=== PATIENT | male | born 1935 | race Caucasian/White ===

== ENCOUNTER 2019-01-11 11:45 | Emergency (ER) | payer OTHER, SELFPAY ==
[2019-01-11 11:52] VITALS: BP 141/89; PULSE 65; RESP 21; TEMP 36.1; O2SAT 97
--- NOTE | 2019-01-11 11:59 | DI.RAD.S_ITS ---
PROCEDURE: XR CHEST 2V INDICATIONS: cough, dyspnea, L. lung crackles TECHNIQUE: 2 views of the chest were acquired. COMPARISON: [facility], CR, XR CHEST 2 VIEWS, 12/11/2017, 8:56. FINDINGS: Surgical changes and devices: A right-sided cardiac pacer/defibrillator is new since the prior study. Lungs and pleura: Developing right infrahilar and left basilar airspace disease appears to be present. There is no large effusion or definite pneumothorax. Mediastinum: Mediastinal contours are normal. Heart size is normal. There is aortic atherosclerosis. Bones and chest wall: No suspicious bony abnormalities. Soft tissues appear unremarkable. IMPRESSION: Bibasilar pneumonia versus atelectasis. Dictated by: Dylan Jennings M.D. on 01/11/2019 at 12:13 Approved by: Dylan Jennings M.D. on 01/11/2019 at 12:15
--- NOTE | 2019-01-11 12:13 | ED.URI ---
HPI - URI/Sore Throat <Thelma Marsh PA-C - Last Filed: 01/11/19 20:16> General Chief Complaint: Upper Respiratory Symptoms Stated Complaint: COUGHING,SPITTING Time Seen by Provider: 01/11/19 11:58 Source: patient, family and old records reviewed Mode of arrival: ambulatory Limitations: no limitations History of Present Illness HPI Narrative: This 83-year-old gentleman is sent by PCP with complaint of approximately 10-14 day history of productive cough with yellow sputum. He states he has had nasal drainage, head and nasal congestion, and postnasal drip with this as well. He denies any fever. He denies any specific exposures. He states that he has chronic dyspnea, has been more short of breath than usual, and also difficulty sleeping flat in using his CPAP due to the head and nasal congestion (he states inability to lie flat is not due to his cough or breathing). He states that his nebulizer treatments at home do help, but finds that he has to lever to breathe. He states that he will occasionally feel some gas pain along his left ribs that resolves quickly, otherwise no chest pain. He denies any new pain or swelling in his extremities. He has not noted new wheeze. He does not have any history of blood clots. He is a former smoker and has COPD. He states that symptoms have not changed at all today for better or worse, BP to come to ED secondary to elevated D-dimer. Related Data Home Medications Medication Instructions Recorded Confirmed calcium carbonate 1 tab PO BID #0 12/16/10 01/11/19 omega 2-cxp-ehl-fish oil [Fish Oil] 3,000 mg PO QPM #0 12/16/10 01/11/19 ascorbic acid (vitamin C) 500 mg PO DAILY #0 10/10/17 01/11/19 multivitamin [Multiple Vitamins] 1 tab PO DAILY #0 10/10/17 01/11/19 Glucosamine Chondroitin 1 cap PO DAILY 01/11/19 01/11/19 acetaminophen 500 - 1,000 mg PO PRN PRN 01/11/19 01/11/19 albuterol sulfate 3 ml INH BID PRN 01/11/19 01/11/19 albuterol sulfate [Proventil HFA] 1 - 2 puff INH Q4HP 01/11/19 01/11/19 allopurinol 300 mg PO QAM 01/11/19 01/11/19 aspirin 81 mg PO QAM 01/11/19 01/11/19 cholecalciferol (vitamin D3) 1,000 unit PO BID 01/11/19 01/11/19 [Vitamin D3] colchicine 0.6 mg PO BIDP PRN 01/11/19 01/11/19 cyanocobalamin (vitamin B-12) 1,000 mcg PO DAILY 01/11/19 01/11/19 [Vitamin B-12] lisinopril 5 mg PO QAM 01/11/19 01/11/19 loratadine 10 mg PO DAILY 01/11/19 01/11/19 magnesium oxide 400 mg PO QAM 01/11/19 01/11/19 metoprolol tartrate 12.5 mg PO BID 01/11/19 01/11/19 rosuvastatin 10 mg PO QPM 01/11/19 01/11/19 spironolactone 25 mg PO QAM 01/11/19 01/11/19 tamsulosin 0.8 mg PO QPM 01/11/19 01/11/19 Previous Rx's Medication Instructions Recorded amoxicillin-pot clavulanate 1 tab PO Q12H #20 tab 01/11/19 [Augmentin] Allergies Allergy/AdvReac Type Severity Reaction Status Date / Time atorvastatin [ATORVASTATIN] Allergy Intermediate MUSCLE PAIN Unverified 10/26/17 12:53 simvastatin [SIMVASTATIN] Allergy Unknown Unverified 10/26/17 12:53 Review of Systems <Thelma Marsh PA-C - Last Filed: 01/11/19 20:16> Review of Systems ROS Unobtainable: All systems reviewed & are unremarkable except as noted in HPI and below PFSH <Thelma Marsh PA-C - Last Filed: 01/11/19 20:16> Medical History (Updated 01/11/19 @ 14:40 by Thelma Marsh PA-C) HTN (hypertension) (Acute) Atrial fibrillation (Chronic) Bradycardia (Chronic) COPD (chronic obstructive pulmonary disease) (Chronic) Gout (Chronic) History of GI bleed (Chronic) History of colon polyps (Chronic) Hyperlipidemia (Chronic) Pollen allergies (Chronic) Pacemaker (Resolved) Surgical History (Updated 01/11/19 @ 12:17 by Thelma Marsh PA-C) History of cataract removal with insertion of prosthetic lens (Resolved) Status post hernia repair (Resolved) Family History (Updated 10/06/16 @ 00:00 by Conversion Provider) Brother Age: 85 Prostate cancer Social History Smoking Status: Former smoker Family History (Updated 10/06/16 @ 00:00 by Conversion Provider) Brother Age: 85 Prostate cancer Social History Smoking Status: Former smoker Exam <Thelma Marsh PA-C - Last Filed: 01/11/19 20:16> Narrative Exam Narrative: GENERAL APPEARANCE: Patient sitting comfortably, in no distress. HEENT: PERRL, EOMI, TMs intact with normal light reflexes, normal oropharynx NECK/THYROID: Neck supple, no masses LUNGS: Clear to auscultation bilaterally aside from minimal faint left mid lung crackle HEART: Regular rate and rhythm without murmur, normal S1, S2, no S3 or S4. ABDOMEN: Soft, NT, ND, + BS x 4 quadrants EXTREMITIES: No cyanosis or edema. No calf tenderness NEUROLOGIC: Alert and oriented, normal speech, gait and coordination. Initial Vital Signs Initial Vital Signs: Vital Signs Temperature 97.0 F L 01/11/19 11:52 Pulse Rate 65 01/11/19 11:52 Respiratory Rate 21 01/11/19 11:52 Blood Pressure 141/89 H 01/11/19 11:52 Pulse Oximetry 97 01/11/19 11:52 <Erna Dumont DO - Last Filed: 01/12/19 07:47> Initial Vital Signs Initial Vital Signs: Vital Signs Temperature 97.0 F L 01/11/19 11:52 Pulse Rate 65 01/11/19 11:52 Respiratory Rate 21 01/11/19 11:52 Blood Pressure 141/89 H 01/11/19 11:52 Pulse Oximetry 97 01/11/19 11:52 Course <Thelma Marsh PA-C - Last Filed: 01/11/19 20:16> Additional Information: I spoke with patient PCP Dr. Sauceda and reviewed findings. No clinical evidence of DVT/PE today. Patient is not hypoxic or tachycardic. His nebulizer at home and here has help symptoms. He does look like he has some pneumonia on chest x-ray and has been symptomatic with upper respiratory symptoms and productive cough for [address] Grimm is agreeable with plan to start Augmentin and he will follow up with patient 1st of next week. Patient agrees to return if any acutely worsening symptoms in the interim Orders Ordered: Discontinued Medications Albuterol (Ventolin) 2.5 mg INH NOW PRN PRN Reason: Shortness Of Breath Or Wheezing Last Admin: 01/11/19 14:11 Dose: 2.5 mg Albuterol/Ipratropium (Duoneb) 3 ml INH NOW ONE Stop: 01/11/19 11:59 Last Admin: 01/11/19 12:35 Dose: 3 ml Vital Signs - 8 hr 01/11/19 12:35 01/11/19 13:19 01/11/19 14:12 Pulse Rate 60 60 98 H Respiratory Rate 16 20 14 Blood Pressure [Left Arm] 123/57 L Pulse Oximetry 97 99 98 01/11/19 14:33 Pulse Rate 60 Respiratory Rate 18 Blood Pressure [Left Arm] 118/55 L Pulse Oximetry 97 <Erna Dumont DO - Last Filed: 01/12/19 07:47> Orders Ordered: Discontinued Medications Albuterol (Ventolin) 2.5 mg INH NOW PRN PRN Reason: Shortness Of Breath Or Wheezing Last Admin: 01/11/19 14:11 Dose: 2.5 mg Albuterol/Ipratropium (Duoneb) 3 ml INH NOW ONE Stop: 01/11/19 11:59 Last Admin: 01/11/19 12:35 Dose: 3 ml Vital Signs - 8 hr 01/11/19 12:35 01/11/19 13:19 01/11/19 14:12 Pulse Rate 60 60 98 H Respiratory Rate 16 20 14 Blood Pressure [Left Arm] 123/57 L Pulse Oximetry 97 99 98 01/11/19 14:33 Pulse Rate 60 Respiratory Rate 18 Blood Pressure [Left Arm] 118/55 L Pulse Oximetry 97 MDM - URI/Sore Throat <Thelma Marsh PA-C - Last Filed: 01/11/19 20:16> Lab Data Attestation: I reviewed the patient's lab results. Result diagrams: 01/11/19 12:10 01/11/19 12:10 Lab Results 01/11/19 01/11/19 01/11/19 Range/Units 12:10 12:10 12:10 WBC 4.6 (4.5-11.0) X10^3/uL RBC 3.92 L (4.5-5.9) X10^6/uL Hgb 12.6 L (13.5-17.5) g/dL Hct 38.2 L (41-53) % MCV 97.4 (80-100) fL MCH 32.2 (26-34) PG MCHC 33.0 (30-36) % RDW 15.2 H (11.6-14.8) % Plt Count 149 L (150-400) X10^3/uL Neut % (Auto) Not Reportable Lymph % (Auto) Not Reportable [place] % (Auto) Not Reportable Eos % (Auto) Not Reportable Baso % (Auto) Not Reportable Lymph # (Auto) Not Reportable [place] # (Auto) Not Reportable Baso # (Auto) Not Reportable Total Counted 100 Seg Neutrophils % 68.0 (38-70) % Lymphocytes % (Manual) 11.0 L (25-45) % Atypical Lymphs % 2.0 H ( - 0) % Monocytes % (Manual) 19.0 H (2-11) % Neutrophils # (Manual) 3128 (6158-5635) /uL RBC Morphology See below Anisocytosis 1+ H Sodium (137-145) mmol/L Potassium (3.4-5.1) mmol/L Chloride (98-107) mmol/L Carbon Dioxide (22-32) mmol/L BUN (9-20) mg/dL Creatinine (0.66-1.25) mg/dL Estimated GFR (>60) mL/min BUN/Creatinine Ratio (6-22) Glucose (80-110) mg/dL Lactate 1.2 (0.7-2.1) mmol/L Calcium (8.4-10.2) mg/dL Magnesium 1.7 (1.6-2.3) mg/dL Total Bilirubin (0.2-1.3) mg/dL AST (17-59) IU/L ALT (21-72) IU/L Alkaline Phosphatase (38-126) U/L Total Creatine Kinase 167 (55-170) U/L CK-MB (CK-2) 1.75 (<2.37) ng/mL CK-MB (CK-2) Rel Index 1.0 L (1.5-5.0) % Troponin I < 0.012 (0.01-0.034) ng/mL B-Natriuretic Peptide 270 H (<100) Total Protein (6.3-8.2) g/dL Albumin (3.5-5.0) g/dL Globulin (1.7-4.1) g/dL Albumin/Globulin Ratio (1.0-2.8) 01/11/19 Range/Units 12:10 WBC (4.5-11.0) X10^3/uL RBC (4.5-5.9) X10^6/uL Hgb (13.5-17.5) g/dL Hct (41-53) % MCV (80-100) fL MCH (26-34) PG MCHC (30-36) % RDW (11.6-14.8) % Plt Count (150-400) X10^3/uL Neut % (Auto) Lymph % (Auto) [place] % (Auto) Eos % (Auto) Baso % (Auto) Lymph # (Auto) [place] # (Auto) Baso # (Auto) Total Counted Seg Neutrophils % (38-70) % Lymphocytes % (Manual) (25-45) % Atypical Lymphs % ( - 0) % Monocytes % (Manual) (2-11) % Neutrophils # (Manual) (6162-0778) /uL RBC Morphology Anisocytosis Sodium 143 (137-145) mmol/L Potassium 3.8 (3.4-5.1) mmol/L Chloride 111 H (98-107) mmol/L Carbon Dioxide 23 (22-32) mmol/L BUN 18 (9-20) mg/dL Creatinine 0.90 (0.66-1.25) mg/dL Estimated GFR > 60.0 (>60) mL/min BUN/Creatinine Ratio 20.0 (6-22) Glucose 93 (80-110) mg/dL Lactate (0.7-2.1) mmol/L Calcium 8.8 (8.4-10.2) mg/dL Magnesium (1.6-2.3) mg/dL Total Bilirubin 0.6 (0.2-1.3) mg/dL AST 24 (17-59) IU/L ALT 21 (21-72) IU/L Alkaline Phosphatase 64 (38-126) U/L Total Creatine Kinase (55-170) U/L CK-MB (CK-2) (<2.37) ng/mL CK-MB (CK-2) Rel Index (1.5-5.0) % Troponin I (0.01-0.034) ng/mL B-Natriuretic Peptide (<100) Total Protein 6.4 (6.3-8.2) g/dL Albumin 3.8 (3.5-5.0) g/dL Globulin 2.6 (1.7-4.1) g/dL Albumin/Globulin Ratio 1.5 (1.0-2.8) Imaging Data Chest x-ray: Radiologist's impression: [address] [address] XRay Report Signed Patient: Clinton Monte BMR#: [id number] : 8Acct:[id number] Age/Sex: 83 / MDate of Service: 01/11/19 Loc: ED Accession Number: [id number] Procedure: XR chest 2V Ordering Provider: Thelma Marsh P.A-C PROCEDURE: XR CHEST 2V INDICATIONS: cough, dyspnea, L. lung crackles TECHNIQUE: 2 views of the chest were acquired. COMPARISON: [facility], , XR CHEST 2 VIEWS, 12/11/2017, 8:56. FINDINGS: Surgical changes and devices: A right-sided cardiac pacer/defibrillator is new since the prior study. Lungs and pleura: Developing right infrahilar and left basilar airspace disease appears to be present. There is no large effusion or definite pneumothorax. Mediastinum: Mediastinal contours are normal. Heart size is normal. There is aortic atherosclerosis. Bones and chest wall: No suspicious bony abnormalities. Soft tissues appear unremarkable. IMPRESSION: Bibasilar pneumonia versus atelectasis. Dictated by: Dylan Jennings M.D. on 01/11/2019 at 12:13 Approved by: Dylan Jennings M.D. on 01/11/2019 at 12:15 ECG Data Attestation: I personally reviewed and interpreted this ECG as follows: (Sinus rhythm, ventricular pacing, left axis deviation, rate 60) <Erna Dumont, DO - Last Filed: 01/12/19 07:47> Lab Data Lab Results 01/11/19 01/11/19 01/11/19 Range/Units 12:10 12:10 12:10 WBC 4.6 (4.5-11.0) X10^3/uL RBC 3.92 L (4.5-5.9) X10^6/uL Hgb 12.6 L (13.5-17.5) g/dL Hct 38.2 L (41-53) % MCV 97.4 (80-100) fL MCH 32.2 (26-34) PG MCHC 33.0 (30-36) % RDW 15.2 H (11.6-14.8) % Plt Count 149 L (150-400) X10^3/uL Neut % (Auto) Not Reportable Lymph % (Auto) Not Reportable [place] % (Auto) Not Reportable Eos % (Auto) Not Reportable Baso % (Auto) Not Reportable Lymph # (Auto) Not Reportable [place] # (Auto) Not Reportable Baso # (Auto) Not Reportable Total Counted 100 Seg Neutrophils % 68.0 (38-70) % Lymphocytes % (Manual) 11.0 L (25-45) % Atypical Lymphs % 2.0 H ( - 0) % Monocytes % (Manual) 19.0 H (2-11) % Neutrophils # (Manual) 3128 (2707-4213) /uL RBC Morphology See below Anisocytosis 1+ H Sodium (137-145) mmol/L Potassium (3.4-5.1) mmol/L Chloride (98-107) mmol/L Carbon Dioxide (22-32) mmol/L BUN (9-20) mg/dL Creatinine (0.66-1.25) mg/dL Estimated GFR (>60) mL/min BUN/Creatinine Ratio (6-22) Glucose (80-110) mg/dL Lactate 1.2 (0.7-2.1) mmol/L Calcium (8.4-10.2) mg/dL Magnesium 1.7 (1.6-2.3) mg/dL Total Bilirubin (0.2-1.3) mg/dL AST (17-59) IU/L ALT (21-72) IU/L Alkaline Phosphatase (38-126) U/L Total Creatine Kinase 167 (55-170) U/L CK-MB (CK-2) 1.75 (<2.37) ng/mL CK-MB (CK-2) Rel Index 1.0 L (1.5-5.0) % Troponin I < 0.012 (0.01-0.034) ng/mL B-Natriuretic Peptide 270 H (<100) Total Protein (6.3-8.2) g/dL Albumin (3.5-5.0) g/dL Globulin (1.7-4.1) g/dL Albumin/Globulin Ratio (1.0-2.8) 01/11/19 Range/Units 12:10 WBC (4.5-11.0) X10^3/uL RBC (4.5-5.9) X10^6/uL Hgb (13.5-17.5) g/dL Hct (41-53) % MCV (80-100) fL MCH (26-34) PG MCHC (30-36) % RDW (11.6-14.8) % Plt Count (150-400) X10^3/uL Neut % (Auto) Lymph % (Auto) [place] % (Auto) Eos % (Auto) Baso % (Auto) Lymph # (Auto) [place] # (Auto) Baso # (Auto) Total Counted Seg Neutrophils % (38-70) % Lymphocytes % (Manual) (25-45) % Atypical Lymphs % ( - 0) % Monocytes % (Manual) (2-11) % Neutrophils # (Manual) (4880-7179) /uL RBC Morphology Anisocytosis Sodium 143 (137-145) mmol/L Potassium 3.8 (3.4-5.1) mmol/L Chloride 111 H (98-107) mmol/L Carbon Dioxide 23 (22-32) mmol/L BUN 18 (9-20) mg/dL Creatinine 0.90 (0.66-1.25) mg/dL Estimated GFR > 60.0 (>60) mL/min BUN/Creatinine Ratio 20.0 (6-22) Glucose 93 (80-110) mg/dL Lactate (0.7-2.1) mmol/L Calcium 8.8 (8.4-10.2) mg/dL Magnesium (1.6-2.3) mg/dL Total Bilirubin 0.6 (0.2-1.3) mg/dL AST 24 (17-59) IU/L ALT 21 (21-72) IU/L Alkaline Phosphatase 64 (38-126) U/L Total Creatine Kinase (55-170) U/L CK-MB (CK-2) (<2.37) ng/mL CK-MB (CK-2) Rel Index (1.5-5.0) % Troponin I (0.01-0.034) ng/mL B-Natriuretic Peptide (<100) Total Protein 6.4 (6.3-8.2) g/dL Albumin 3.8 (3.5-5.0) g/dL Globulin 2.6 (1.7-4.1) g/dL Albumin/Globulin Ratio 1.5 (1.0-2.8) ECG Data Attestation: I personally reviewed and interpreted this ECG as follows: Prior ECG tracings: available for review Interpretation: Paced rhythm rate [address] changes similar to previous EKGs Discharge Plan Departure Patient Disposition: Home Clinical Impression: Pneumonia Qualifiers: Pneumonia type: due to unspecified organism Laterality: bilateral Lung location: lower lobe of lung Qualified Code(s): J18.1 - Lobar pneumonia, unspecified organism Discharge Date/Time: 01/11/19 14:50 Interventions: ED Discharge Assessment Last Done: 01/11/19 14:50 Instructions: DI for Pneumonia -- Adult Activity Restrictions/Additional Instructions: Since you are feeling better, you can return home and monitor. Please start the antibiotic now, and take the 2nd dose at bedtime tonight. Please use your nebulizer as often as needed as well as Mucinex to help loosen your chest congestion. As we talked about, you should call 911 immediately if you are feeling acutely worse, i.e. increased difficulty breathing or your nebulizer is not effective, new chest pain or high fever. Otherwise, I have spoken with Dr. Grimm and reviewed your test results, and we would like you to follow up there on Tuesday. Please call when you leave here to schedule. Prescriptions: New amoxicillin-pot clavulanate [Augmentin] 875-125 mg tablet 1 tab PO Q12H Qty: 20 RF: 0 No Action omega 8-xmj-svv-fish oil [Fish Oil] 1,000 MG capsule 3,000 mg PO QPM Qty: 0 RF: 0 calcium carbonate 600 MG tablet 1 tab PO BID Qty: 0 RF: 0 multivitamin [Multiple Vitamins] 1 EACH tablet 1 tab PO DAILY Qty: 0 RF: 0 ascorbic acid (vitamin C) 500 MG tablet 500 mg PO DAILY Qty: 0 RF: 0 aspirin 81 mg Tablet,Delayed Release (Dr/Ec) 81 mg PO QAM RF: 0 acetaminophen 500 mg Tablet 500 - 1,000 mg PO PRN PRN (Reason: pain) RF: 0 spironolactone 25 mg Tablet 25 mg PO QAM RF: 0 tamsulosin 0.4 mg Capsule 0.8 mg PO QPM RF: 0 lisinopril 5 mg Tablet 5 mg PO QAM RF: 0 rosuvastatin 10 mg Tablet 10 mg PO QPM RF: 0 metoprolol tartrate 25 mg Tablet 12.5 mg PO BID RF: 0 magnesium oxide 400 mg magnesium Tablet 400 mg PO QAM RF: 0 albuterol sulfate 2.5 MG/3 ML solution for nebulization 3 ml INH BID PRN (Reason: Shortness Of Breath) RF: 0 allopurinol 300 MG tablet 300 mg PO QAM RF: 0 colchicine 0.6 MG capsule 0.6 mg PO BIDP PRN (Reason: Gout) RF: 0 albuterol sulfate [Proventil HFA] 90 MCG/PUFF HFA aerosol inhaler 1 - 2 puff INH Q4HP RF: 0 cyanocobalamin (vitamin B-12) [Vitamin B-12] 1,000 mcg Tablet 1,000 mcg PO DAILY RF: 0 cholecalciferol (vitamin D3) [Vitamin D3] 1,000 unit Tablet 1,000 unit PO BID RF: 0 loratadine 10 mg Capsule 10 mg PO DAILY RF: 0 Glucosamine Chondroitin 1 cap PO DAILY RF: 0 Referrals: Clinton Grimm MD [Physician] - <Erna Dumont DO - Last Filed: 01/12/19 07:47> Cosign ED Attending Cosignature Attestation: I was immediately available in the department for consultation. Documentation has been reviewed. I agree with assessment and plan.
--- NOTE | 2019-01-11 12:18 | ED_ITS ---
HPI - URI/Sore Throat <Thelma Marsh PA-C - Last Filed: 01/11/19 20:16> General Chief Complaint: Upper Respiratory Symptoms Stated Complaint: COUGHING,SPITTING Time Seen by Provider: 01/11/19 11:58 Source: patient, family and old records reviewed Mode of arrival: ambulatory Limitations: no limitations History of Present Illness HPI Narrative: This 83-year-old gentleman is sent by PCP with complaint of approximately 10-14 day history of productive cough with yellow sputum. He states he has had nasal drainage, head and nasal congestion, and postnasal drip with this as well. He denies any fever. He denies any specific exposures. He states that he has chronic dyspnea, has been more short of breath than usual, and also difficulty sleeping flat in using his CPAP due to the head and nasal congestion (he states inability to lie flat is not due to his cough or breathing). He states that his nebulizer treatments at home do help, but finds that he has to lever to breathe. He states that he will occasionally feel some gas pain along his left ribs that resolves quickly, otherwise no chest pain. He denies any new pain or swelling in his extremities. He has not noted new wheeze . He does not have any history of blood clots. He is a former smoker and has COPD. He states that symptoms have not changed at all today for better or worse, BP to come to ED secondary to elevated D-dimer. Related Data Home Medications Medication Instructions Recorded Confirmed calcium carbonate 1 tab PO BID #0 12/16/10 01/11/19 omega 6-lll-kzo-fish oil [Fish Oil] 3,000 mg PO QPM #0 12/16/10 01/11/19 ascorbic acid (vitamin C) 500 mg PO DAILY #0 10/10/17 01/11/19 multivitamin [Multiple Vitamins] 1 tab PO DAILY #0 10/10/17 01/11/19 Glucosamine Chondroitin 1 cap PO DAILY 01/11/19 01/11/19 acetaminophen 500 - 1,000 mg PO PRN PRN 01/11/19 01/11/19 albuterol sulfate 3 ml INH BID PRN 01/11/19 01/11/19 albuterol sulfate [Proventil HFA] 1 - 2 puff INH Q4HP 01/11/19 01/11/19 allopurinol 300 mg PO QAM 01/11/19 01/11/19 aspirin 81 mg PO QAM 01/11/19 01/11/19 cholecalciferol (vitamin D3) 1,000 unit PO BID 01/11/19 01/11/19 [Vitamin D3] colchicine 0.6 mg PO BIDP PRN 01/11/19 01/11/19 cyanocobalamin (vitamin B-12) 1,000 mcg PO DAILY 01/11/19 01/11/19 [Vitamin B-12] lisinopril 5 mg PO QAM 01/11/19 01/11/19 loratadine 10 mg PO DAILY 01/11/19 01/11/19 magnesium oxide 400 mg PO QAM 01/11/19 01/11/19 metoprolol tartrate 12.5 mg PO BID 01/11/19 01/11/19 rosuvastatin 10 mg PO QPM 01/11/19 01/11/19 spironolactone 25 mg PO QAM 01/11/19 01/11/19 tamsulosin 0.8 mg PO QPM 01/11/19 01/11/19 Previous Rx's Medication Instructions Recorded amoxicillin-pot clavulanate 1 tab PO Q12H #20 tab 01/11/19 [Augmentin] Allergies Allergy/AdvReac Type Severity Reaction Status Date / Time atorvastatin [ATORVASTATIN] Allergy Intermediate MUSCLE PAIN Unverified 10/26/17 12:53 simvastatin [SIMVASTATIN] Allergy Unknown Unverified 10/26/17 12:53 Review of Systems <Thelma Marsh PA-C - Last Filed: 01/11/19 20:16> Review of Systems ROS Unobtainable: All systems reviewed & are unremarkable except as noted in HPI and below PFSH <Thelma Marsh PA-C - Last Filed: 01/11/19 20:16> Medical History (Updated 01/11/19 @ 14:40 by Thelma Marsh PA-C) HTN (hypertension) (Acute) Atrial fibrillation (Chronic) Bradycardia (Chronic) COPD (chronic obstructive pulmonary disease) (Chronic) Gout (Chronic) History of GI bleed (Chronic) History of colon polyps (Chronic) Hyperlipidemia (Chronic) Pollen allergies (Chronic) Pacemaker (Resolved) Surgical History (Updated 01/11/19 @ 12:17 by Thelma Marsh PA-C) History of cataract removal with insertion of prosthetic lens (Resolved) Status post hernia repair (Resolved) Family History (Updated 10/06/16 @ 00:00 by Conversion Provider) Brother Age: 85 Prostate cancer Social History Smoking Status: Former smoker Family History (Updated 10/06/16 @ 00:00 by Conversion Provider) Brother Age: 85 Prostate cancer Social History Smoking Status: Former smoker Exam <Thelma Marsh PA-C - Last Filed: 01/11/19 20:16> Narrative Exam Narrative: GENERAL APPEARANCE: Patient sitting comfortably, in no distress. HEENT: PERRL, EOMI, TMs intact with normal light reflexes, normal oropharynx NECK/THYROID: Neck supple, no masses LUNGS: Clear to auscultation bilaterally aside from minimal faint left mid lung crackle HEART: Regular rate and rhythm without murmur, normal S1, S2, no S3 or S4. ABDOMEN: Soft, NT, ND, + BS x 4 quadrants EXTREMITIES: No cyanosis or edema. No calf tenderness NEUROLOGIC: Alert and oriented, normal speech, gait and coordination. Initial Vital Signs Initial Vital Signs: Vital Signs Temperature 97.0 F L 01/11/19 11:52 Pulse Rate 65 01/11/19 11:52 Respiratory Rate 21 01/11/19 11:52 Blood Pressure 141/89 H 01/11/19 11:52 Pulse Oximetry 97 01/11/19 11:52 <Erna Dumont DO - Last Filed: 01/12/19 07:47> Initial Vital Signs Initial Vital Signs: Vital Signs Temperature 97.0 F L 01/11/19 11:52 Pulse Rate 65 01/11/19 11:52 Respiratory Rate 21 01/11/19 11:52 Blood Pressure 141/89 H 01/11/19 11:52 Pulse Oximetry 97 01/11/19 11:52 Course <Thelma Marsh PA-C - Last Filed: 01/11/19 20:16> Additional Information: I spoke with patient PCP Dr. Sauceda and reviewed findings. No clinical evidence of DVT/PE today. Patient is not hypoxic or tachycardic. His nebulizer at home and here has help symptoms. He does look like he has some pneumonia on chest x-ray and has been symptomatic with upper respiratory symptoms and productive cough for [address] Grimm is agreeable with plan to start Augmentin and he will follow up with patient 1st of next week. Patient agrees to return if any acutely worsening symptoms in the interim Orders Ordered: Discontinued Medications Albuterol (Ventolin) 2.5 mg INH NOW PRN PRN Reason: Shortness Of Breath Or Wheezing Last Admin: 01/11/19 14:11 Dose: 2.5 mg Albuterol/Ipratropium (Duoneb) 3 ml INH NOW ONE Stop: 01/11/19 11:59 Last Admin: 01/11/19 12:35 Dose: 3 ml Vital Signs - 8 hr 01/11/19 12:35 01/11/19 13:19 01/11/19 14:12 Pulse Rate 60 60 98 H Respiratory Rate 16 20 14 Blood Pressure [Left Arm] 123/57 L Pulse Oximetry 97 99 98 01/11/19 14:33 Pulse Rate 60 Respiratory Rate 18 Blood Pressure [Left Arm] 118/55 L Pulse Oximetry 97 <Erna Dumont DO - Last Filed: 01/12/19 07:47> Orders Ordered: Discontinued Medications Albuterol (Ventolin) 2.5 mg INH NOW PRN PRN Reason: Shortness Of Breath Or Wheezing Last Admin: 01/11/19 14:11 Dose: 2.5 mg Albuterol/Ipratropium (Duoneb) 3 ml INH NOW ONE Stop: 01/11/19 11:59 Last Admin: 01/11/19 12:35 Dose: 3 ml Vital Signs - 8 hr 01/11/19 12:35 01/11/19 13:19 01/11/19 14:12 Pulse Rate 60 60 98 H Respiratory Rate 16 20 14 Blood Pressure [Left Arm] 123/57 L Pulse Oximetry 97 99 98 01/11/19 14:33 Pulse Rate 60 Respiratory Rate 18 Blood Pressure [Left Arm] 118/55 L Pulse Oximetry 97 MDM - URI/Sore Throat <Thelma Marsh PA-C - Last Filed: 01/11/19 20:16> Lab Data Attestation: I reviewed the patient's lab results. Result diagrams: 01/11/19 12:10 01/11/19 12:10 Lab Results 01/11/19 01/11/19 01/11/19 Range/Units 12:10 12:10 12:10 WBC 4.6 (4.5-11.0) X10^3/uL RBC 3.92 L (4.5-5.9) X10^6/uL Hgb 12.6 L (13.5-17.5) g/dL Hct 38.2 L (41-53) % MCV 97.4 (80-100) fL MCH 32.2 (26-34) PG MCHC 33.0 (30-36) % RDW 15.2 H (11.6-14.8) % Plt Count 149 L (150-400) X10^3/uL Neut % (Auto) Not Reportable Lymph % (Auto) Not Reportable [place] % (Auto) Not Reportable Eos % (Auto) Not Reportable Baso % (Auto) Not Reportable Lymph # (Auto) Not Reportable [place] # (Auto) Not Reportable Baso # (Auto) Not Reportable Total Counted 100 Seg Neutrophils % 68.0 (38-70) % Lymphocytes % (Manual) 11.0 L (25-45) % Atypical Lymphs % 2.0 H ( - 0) % Monocytes % (Manual) 19.0 H (2-11) % Neutrophils # (Manual) 3128 (3470-3525) /uL RBC Morphology See below Anisocytosis 1+ H Sodium (137-145) mmol/L Potassium (3.4-5.1) mmol/L Chloride (98-107) mmol/L Carbon Dioxide (22-32) mmol/L BUN (9-20) mg/dL Creatinine (0.66-1.25) mg/dL Estimated GFR (>60) mL/min BUN/Creatinine Ratio (6-22) Glucose (80-110) mg/dL Lactate 1.2 (0.7-2.1) mmol/L Calcium (8.4-10.2) mg/dL Magnesium 1.7 (1.6-2.3) mg/dL Total Bilirubin (0.2-1.3) mg/dL AST (17-59) IU/L ALT (21-72) IU/L Alkaline Phosphatase (38-126) U/L Total Creatine Kinase 167 (55-170) U/L CK-MB (CK-2) 1.75 (<2.37) ng/mL CK-MB (CK-2) Rel Index 1.0 L (1.5-5.0) % Troponin I < 0.012 (0.01-0.034) ng/mL B-Natriuretic Peptide 270 H (<100) Total Protein (6.3-8.2) g/dL Albumin (3.5-5.0) g/dL Globulin (1.7-4.1) g/dL Albumin/Globulin Ratio (1.0-2.8) 01/11/19 Range/Units 12:10 WBC (4.5-11.0) X10^3/uL RBC (4.5-5.9) X10^6/uL Hgb (13.5-17.5) g/dL Hct (41-53) % MCV (80-100) fL MCH (26-34) PG MCHC (30-36) % RDW (11.6-14.8) % Plt Count (150-400) X10^3/uL Neut % (Auto) Lymph % (Auto) [place] % (Auto) Eos % (Auto) Baso % (Auto) Lymph # (Auto) [place] # (Auto) Baso # (Auto) Total Counted Seg Neutrophils % (38-70) % Lymphocytes % (Manual) (25-45) % Atypical Lymphs % ( - 0) % Monocytes % (Manual) (2-11) % Neutrophils # (Manual) (8411-2651) /uL RBC Morphology Anisocytosis Sodium 143 (137-145) mmol/L Potassium 3.8 (3.4-5.1) mmol/L Chloride 111 H (98-107) mmol/L Carbon Dioxide 23 (22-32) mmol/L BUN 18 (9-20) mg/dL Creatinine 0.90 (0.66-1.25) mg/dL Estimated GFR > 60.0 (>60) mL/min BUN/Creatinine Ratio 20.0 (6-22) Glucose 93 (80-110) mg/dL Lactate (0.7-2.1) mmol/L Calcium 8.8 (8.4-10.2) mg/dL Magnesium (1.6-2.3) mg/dL Total Bilirubin 0.6 (0.2-1.3) mg/dL AST 24 (17-59) IU/L ALT 21 (21-72) IU/L Alkaline Phosphatase 64 (38-126) U/L Total Creatine Kinase (55-170) U/L CK-MB (CK-2) (<2.37) ng/mL CK-MB (CK-2) Rel Index (1.5-5.0) % Troponin I (0.01-0.034) ng/mL B-Natriuretic Peptide (<100) Total Protein 6.4 (6.3-8.2) g/dL Albumin 3.8 (3.5-5.0) g/dL Globulin 2.6 (1.7-4.1) g/dL Albumin/Globulin Ratio 1.5 (1.0-2.8) Imaging Data Chest x-ray: Radiologist's impression: [address] [address] XRay Report Signed Patient: Clinton Monte BMR#: [id number] : 8Acct:[id number] Age/Sex: 83 / MDate of Service: 01/11/19 Loc: ED Accession Number: [id number] Procedure: XR chest 2V Ordering Provider: Thelma Marsh P.A-C PROCEDURE: XR CHEST 2V INDICATIONS: cough, dyspnea, L. lung crackles TECHNIQUE: 2 views of the chest were acquired. COMPARISON: [facility], , XR CHEST 2 VIEWS, 12/11/2017, 8:56. FINDINGS: Surgical changes and devices: A right-sided cardiac pacer/defibrillator is new since the prior study. Lungs and pleura: Developing right infrahilar and left basilar airspace disease appears to be present. There is no large effusion or definite pneumothorax. Mediastinum: Mediastinal contours are normal. Heart size is normal. There is aortic atherosclerosis. Bones and chest wall: No suspicious bony abnormalities. Soft tissues appear unremarkable. IMPRESSION: Bibasilar pneumonia versus atelectasis. Dictated by: Dylan Jennings M.D. on 01/11/2019 at 12:13 Approved by: Dylan Jennings M.D. on 01/11/2019 at 12:15 ECG Data Attestation: I personally reviewed and interpreted this ECG as follows: (Sinus rhythm, ventricular pacing, left axis deviation, rate 60) <Erna Dumont, DO - Last Filed: 01/12/19 07:47> Lab Data Lab Results 01/11/19 01/11/19 01/11/19 Range/Units 12:10 12:10 12:10 WBC 4.6 (4.5-11.0) X10^3/uL RBC 3.92 L (4.5-5.9) X10^6/uL Hgb 12.6 L (13.5-17.5) g/dL Hct 38.2 L (41-53) % MCV 97.4 (80-100) fL MCH 32.2 (26-34) PG MCHC 33.0 (30-36) % RDW 15.2 H (11.6-14.8) % Plt Count 149 L (150-400) X10^3/uL Neut % (Auto) Not Reportable Lymph % (Auto) Not Reportable [place] % (Auto) Not Reportable Eos % (Auto) Not Reportable Baso % (Auto) Not Reportable Lymph # (Auto) Not Reportable [place] # (Auto) Not Reportable Baso # (Auto) Not Reportable Total Counted 100 Seg Neutrophils % 68.0 (38-70) % Lymphocytes % (Manual) 11.0 L (25-45) % Atypical Lymphs % 2.0 H ( - 0) % Monocytes % (Manual) 19.0 H (2-11) % Neutrophils # (Manual) 3128 (0285-1723) /uL RBC Morphology See below Anisocytosis 1+ H Sodium (137-145) mmol/L Potassium (3.4-5.1) mmol/L Chloride (98-107) mmol/L Carbon Dioxide (22-32) mmol/L BUN (9-20) mg/dL Creatinine (0.66-1.25) mg/dL Estimated GFR (>60) mL/min BUN/Creatinine Ratio (6-22) Glucose (80-110) mg/dL Lactate 1.2 (0.7-2.1) mmol/L Calcium (8.4-10.2) mg/dL Magnesium 1.7 (1.6-2.3) mg/dL Total Bilirubin (0.2-1.3) mg/dL AST (17-59) IU/L ALT (21-72) IU/L Alkaline Phosphatase (38-126) U/L Total Creatine Kinase 167 (55-170) U/L CK-MB (CK-2) 1.75 (<2.37) ng/mL CK-MB (CK-2) Rel Index 1.0 L (1.5-5.0) % Troponin I < 0.012 (0.01-0.034) ng/mL B-Natriuretic Peptide 270 H (<100) Total Protein (6.3-8.2) g/dL Albumin (3.5-5.0) g/dL Globulin (1.7-4.1) g/dL Albumin/Globulin Ratio (1.0-2.8) 01/11/19 Range/Units 12:10 WBC (4.5-11.0) X10^3/uL RBC (4.5-5.9) X10^6/uL Hgb (13.5-17.5) g/dL Hct (41-53) % MCV (80-100) fL MCH (26-34) PG MCHC (30-36) % RDW (11.6-14.8) % Plt Count (150-400) X10^3/uL Neut % (Auto) Lymph % (Auto) [place] % (Auto) Eos % (Auto) Baso % (Auto) Lymph # (Auto) [place] # (Auto) Baso # (Auto) Total Counted Seg Neutrophils % (38-70) % Lymphocytes % (Manual) (25-45) % Atypical Lymphs % ( - 0) % Monocytes % (Manual) (2-11) % Neutrophils # (Manual) (3873-2095) /uL RBC Morphology Anisocytosis Sodium 143 (137-145) mmol/L Potassium 3.8 (3.4-5.1) mmol/L Chloride 111 H (98-107) mmol/L Carbon Dioxide 23 (22-32) mmol/L BUN 18 (9-20) mg/dL Creatinine 0.90 (0.66-1.25) mg/dL Estimated GFR > 60.0 (>60) mL/min BUN/Creatinine Ratio 20.0 (6-22) Glucose 93 (80-110) mg/dL Lactate (0.7-2.1) mmol/L Calcium 8.8 (8.4-10.2) mg/dL Magnesium (1.6-2.3) mg/dL Total Bilirubin 0.6 (0.2-1.3) mg/dL AST 24 (17-59) IU/L ALT 21 (21-72) IU/L Alkaline Phosphatase 64 (38-126) U/L Total Creatine Kinase (55-170) U/L CK-MB (CK-2) (<2.37) ng/mL CK-MB (CK-2) Rel Index (1.5-5.0) % Troponin I (0.01-0.034) ng/mL B-Natriuretic Peptide (<100) Total Protein 6.4 (6.3-8.2) g/dL Albumin 3.8 (3.5-5.0) g/dL Globulin 2.6 (1.7-4.1) g/dL Albumin/Globulin Ratio 1.5 (1.0-2.8) ECG Data Attestation: I personally reviewed and interpreted this ECG as follows: Prior ECG tracings: available for review Interpretation: Paced rhythm rate [address] changes similar to previous EKGs Discharge Plan Departure Patient Disposition: Home Clinical Impression: Pneumonia Qualifiers: Pneumonia type: due to unspecified organism Laterality: bilateral Lung location: lower lobe of lung Qualified Code(s): J18.1 - Lobar pneumonia, unspecified organism Discharge Date/Time: 01/11/19 14:50 Interventions: ED Discharge Assessment Last Done: 01/11/19 14:50 Instructions: DI for Pneumonia -- Adult Activity Restrictions/Additional Instructions: Since you are feeling better, you can return home and monitor. Please start the antibiotic now, and take the 2nd dose at bedtime tonight. Please use your nebulizer as often as needed as well as Mucinex to help loosen your chest congestion. As we talked about, you should call 911 immediately if you are feeling acutely worse, i.e. increased difficulty breathing or your nebulizer is not effective, new chest pain or high fever. Otherwise, I have spoken with Dr. Grimm and reviewed your test results, and we would like you to follow up there on Tuesday. Please call when you leave here to schedule. Prescriptions: New amoxicillin-pot clavulanate [Augmentin] 875-125 mg tablet 1 tab PO Q12H Qty: 20 RF: 0 No Action omega 6-rxn-ctl-fish oil [Fish Oil] 1,000 MG capsule 3,000 mg PO QPM Qty: 0 RF: 0 calcium carbonate 600 MG tablet 1 tab PO BID Qty: 0 RF: 0 multivitamin [Multiple Vitamins] 1 EACH tablet 1 tab PO DAILY Qty: 0 RF: 0 ascorbic acid (vitamin C) 500 MG tablet 500 mg PO DAILY Qty: 0 RF: 0 aspirin 81 mg Tablet,Delayed Release (Dr/Ec) 81 mg PO QAM RF: 0 acetaminophen 500 mg Tablet 500 - 1,000 mg PO PRN PRN (Reason: pain) RF: 0 spironolactone 25 mg Tablet 25 mg PO QAM RF: 0 tamsulosin 0.4 mg Capsule 0.8 mg PO QPM RF: 0 lisinopril 5 mg Tablet 5 mg PO QAM RF: 0 rosuvastatin 10 mg Tablet 10 mg PO QPM RF: 0 metoprolol tartrate 25 mg Tablet 12.5 mg PO BID RF: 0 magnesium oxide 400 mg magnesium Tablet 400 mg PO QAM RF: 0 albuterol sulfate 2.5 MG/3 ML solution for nebulization 3 ml INH BID PRN (Reason: Shortness Of Breath) RF: 0 allopurinol 300 MG tablet 300 mg PO QAM RF: 0 colchicine 0.6 MG capsule 0.6 mg PO BIDP PRN (Reason: Gout) RF: 0 albuterol sulfate [Proventil HFA] 90 MCG/PUFF HFA aerosol inhaler 1 - 2 puff INH Q4HP RF: 0 cyanocobalamin (vitamin B-12) [Vitamin B-12] 1,000 mcg Tablet 1,000 mcg PO DAILY RF: 0 cholecalciferol (vitamin D3) [Vitamin D3] 1,000 unit Tablet 1,000 unit PO BID RF: 0 loratadine 10 mg Capsule 10 mg PO DAILY RF: 0 Glucosamine Chondroitin 1 cap PO DAILY RF: 0 Referrals: Clinton Grimm MD [Physician] - <Erna Dumont DO - Last Filed: 01/12/19 07:47> Cosign ED Attending Cosignature Attestation: I was immediately available in the department for consultation. Documentation has been reviewed. I agree with assessment and plan.
[2019-01-11 12:26] LABS: Hematocrit 38.2 % (41-53); Hemoglobin 12.6 g/dL (13.5-17.5); Mean Corpuscular Hemoglobin 32.2 PG (26-34); Mean Corpuscular Volume 97.4 fL (80-100); Platelet Count 149 X10^3/uL (150-400); Red Blood Cell Count 3.92 X10^6/uL (4.5-5.9); Red Cell Distribution Width 15.2 % (11.6-14.8); White Blood Cell Count 4.6 X10^3/uL (4.5-11.0)
[2019-01-11 12:30] LABS: Add Manual Diff / Slide Review YES
[2019-01-11 12:35] VITALS: PULSE 60; RESP 16; O2SAT 97
[2019-01-11] MEDS: ALBUTEROL/IPRATROPIUM 3 ML AMPUL INH (12:35)
[2019-01-11 12:41] LABS: Lactate (Lactic Acid) 1.2 mmol/L (0.7-2.1)
[2019-01-11 12:42] LABS: Creatine Kinase 167 U/L (55-170); Magnesium 1.7 mg/dL (1.6-2.3)
[2019-01-11 12:47] LABS: B Type Natriuretic Peptide 270 (<100)
[2019-01-11 12:52] LABS: Anisocytosis 1+; Neutrophils Absolute Manual 3128 /uL (3000-5900); Total Cells Counted 100
[2019-01-11 12:53] LABS: Troponin I < 0.012 ng/mL (0.01-0.034)
[2019-01-11 12:57] LABS: Creatine Kinase MB 1.75 ng/mL (<2.37)
[2019-01-11 13:19] VITALS: BP 123/57; PULSE 60; RESP 20; O2SAT 99
[2019-01-11 13:44] LABS: Alanine Aminotransferase 21 IU/L (21-72); Albumin 3.8 g/dL (3.5-5.0); Albumin Globulin Ratio 1.5 (1.0-2.8); Alkaline Phosphatase 64 U/L (38-126); Aspartate Aminotransferase 24 IU/L (17-59); Bilirubin Total 0.6 mg/dL (0.2-1.3); Blood Urea Nitrogen 18 mg/dL (9-20); Calcium 8.8 mg/dL (8.4-10.2); Carbon Dioxide 23 mmol/L (22-32); Chloride 111 mmol/L (98-107); Estimated Glomerular Filt Rate > 60.0 mL/min (>60); Globulin 2.6 g/dL (1.7-4.1); Glucose 93 mg/dL (80-110); HEMOLYSIS < 15 (0-50); Potassium 3.8 mmol/L (3.4-5.1); Sodium 143 mmol/L (137-145); Total Protein 6.4 g/dL (6.3-8.2)
[2019-01-11] MEDS: ALBUTEROL 2.5 MG/3 ML NEB (ADULT) INH (14:11)
[2019-01-11 14:12] VITALS: PULSE 98; RESP 14; O2SAT 98
[2019-01-11 14:33] VITALS: BP 118/55; PULSE 60; RESP 18; O2SAT 97
== END 2019-01-11 14:50 | disposition home or self-care (01) ==
PROVIDERS: Emergency Provider Internal Medicine; Family Provider Internal Medicine
DX: J18.1 Lobar pneumonia, unspecified organism (principal); R06.00 Dyspnea, unspecified
CPT/HCPCS: 36415; 36591; 71046; 80053; 82550; 82553; 83605; 83735; 83880; 84484; 85025; 93005; 93010; 94640; 99283; 99285; J7613

== ENCOUNTER 2022-05-25 18:06 | Emergency (ER) | payer MEDICARE, SELFPAY ==
[2022-05-25 18:12] VITALS: BP 169/70; PULSE 81; RESP 24; TEMP 36.7; O2SAT 95
--- NOTE | 2022-05-25 18:19 | DI.US.S_ITS ---
PROCEDURE: US PERIPH VENOUS UP EXTREM LT INDICATIONS: PAIN, EDEMA TECHNIQUE: Real-time imaging, as well as color and pulse Doppler interrogation, was performed of the left upper extremity deep veins from the inferior neck to the antecubital fossa. COMPARISON: The comparison exams may be incomplete. FINDINGS: The internal jugular vein, visualized portions of the subclavian vein, axillary, and brachial veins are free of intraluminal thrombus. Where physically possible, the veins are normally compressible. Color and pulse Doppler demonstrate normal intraluminal flow, with expected phasicity and pulsatility. Additional scanning of the cephalic and basilic veins of the superficial system demonstrate normal compressibility, without thrombus. IMPRESSION: No DVT in the left upper extremity. Dictated by: Oneil Collado M.D. on 05/25/2022 at 19:10 Approved by: Oneil Collado M.D. on 05/25/2022 at 19:12
--- NOTE | 2022-05-25 20:33 | ED.UPPEXIN ---
HPI - Extremity Injury (Upper) <Antoinette Gaitan PA-C - Last Filed: 05/25/22 20:38> General Chief Complaint: Extremity Injury, Upper Stated Complaint: SENT FROM [facility]. BLOOD CLOT WANTING US DONE Time Seen by Provider: 05/25/22 19:57 Source: patient and family Mode of arrival: Ambulatory History of Present Illness HPI narrative: 86-year-old male with past medical history hyperlipidemia, GI bleeds, hypertension, AFib, COPD presents to the ED with 2 days of left arm pain. Patient states that he was seen by a doctor, sent to the ED to rule out DVTs in the left arm. Patient states that he has been doing some woodwork, which involves leaning with his left elbow and putting weight on his left elbow down on the table for long periods of time, following which his pain started. Patient denies numbness, tingling, weakness. Patient endorses full range of motion. Related Data Home Medications Medication Instructions Recorded Confirmed calcium carbonate 600 mg calcium 1 tab PO BID ##0 12/16/10 01/08/20 (1,500 mg) tablet omega 5-bsk-zzu-fish oil 1,000 mg 3,000 mg PO QPM ##0 12/16/10 01/08/20 (120 mg-180 mg) capsule (Fish Oil) ascorbic acid (vitamin C) 500 mg 500 mg PO DAILY ##0 10/10/17 01/08/20 tablet multivitamin (Multiple Vitamins 1 tab PO DAILY ##0 10/10/17 01/08/20 tablet) Glucosamine Chondroitin 1 cap PO DAILY 01/11/19 01/08/20 acetaminophen 500 mg tablet 500 - 1,000 mg PO PRN PRN pain 01/11/19 01/08/20 albuterol sulfate 2.5 mg/3 mL 3 ml INH BID PRN Shortness Of 01/11/19 01/08/20 (0.083 %) solution for nebulization Breath albuterol sulfate 90 mcg/actuation 1 - 2 puff INH Q4HP shortness of 01/11/19 01/08/20 aerosol inhaler (Proventil HFA) breath allopurinol 300 mg tablet 300 mg PO QAM 01/11/19 01/08/20 aspirin 81 mg tablet,delayed 81 mg PO QAM 01/11/19 01/08/20 release cholecalciferol (vitamin D3) 25 1,000 unit PO BID 01/11/19 01/08/20 mcg (1,000 unit) tablet (Vitamin D3) colchicine 0.6 mg capsule 0.6 mg PO BIDP PRN Gout 01/11/19 01/08/20 cyanocobalamin (vitamin B-12) 1,000 mcg PO DAILY 01/11/19 01/08/20 1,000 mcg tablet (Vitamin B-12) lisinopril 5 mg tablet 5 mg PO QAM 01/11/19 01/08/20 loratadine 10 mg capsule 10 mg PO DAILY 01/11/19 01/08/20 magnesium oxide 400 mg PO QAM 01/11/19 01/08/20 metoprolol tartrate 25 mg tablet 12.5 mg PO BID 01/11/19 01/08/20 rosuvastatin 10 mg tablet 10 mg PO QPM 01/11/19 01/08/20 spironolactone 25 mg tablet 25 mg PO QAM 01/11/19 01/08/20 tamsulosin 0.4 mg capsule 0.8 mg PO QPM 01/11/19 01/08/20 Previous Rx's Medication Instructions Recorded amoxicillin 875 mg-potassium 1 tab PO Q12H pneumonia/COPD #20 01/11/19 clavulanate 125 mg tablet tabs (Augmentin) Allergies Allergy/AdvReac Type Severity Reaction Status Date / Time atorvastatin [ATORVASTATIN] Allergy Intermediate MUSCLE PAIN Unverified 10/26/17 12:53 simvastatin [SIMVASTATIN] Allergy Unknown Unverified 10/26/17 12:53 Review of Systems <Antoinette Gaitan PA-C - Last Filed: 05/25/22 20:38> Review of Systems ROS Unobtainable: All systems reviewed & are unremarkable except as noted in HPI and below Constitutional Constitutional: Denies chills, Denies fatigue, Denies fever(s), Denies frequent falls, Denies lethargy and Denies weakness Eyes Eyes: Denies change in vision, Denies eye discharge, Denies irritation and Denies loss of vision ENT Ears, Nose, Mouth, and Throat: Denies change in voice, Denies dizziness, Denies neck pain, Denies sore throat and Denies throat swelling Cardiovascular Cardiovascular: Denies chest pain, Denies irregular heart rhythm, Denies lightheadedness, Denies palpitations, Denies dyspnea, Denies dyspnea on exertion and Denies orthopnea Respiratory Respiratory: Denies cough, Denies dyspnea, Denies dyspnea on exertion and Denies wheezing Gastrointestinal Gastrointestinal: Denies abdominal pain, Denies change in bowel habits, Denies diarrhea, Denies nausea and Denies vomiting Genitourinary Genitourinary: Denies hematuria, Denies flank pain, Denies urinary incontinence and Denies urinary urgency Musculoskeletal Musculoskeletal: Denies back pain, Denies muscle weakness, Denies neck pain, Denies numbness and Denies tingling Comments: Left arm swelling, pain Integumentary/Breasts Skin/Breast: Denies pruritus, Denies erythema, Denies rash and Denies wounds Neurologic Neurologic: Denies behavioral changes, Denies confusion, Denies dizziness, Denies frequent falls, Denies loss of vision, Denies numbness, Denies tingling and Denies weakness Psychiatric Psychiatric: Denies anxiety, Denies behavioral changes, Denies confusion, Denies depression, Denies homicidal ideation and Denies suicidal ideation Endocrine Endocrine: Denies fatigue, Denies flushing and Denies palpitations Hematologic/Lymphatic Hematologic/Lymphatic: Denies easy bruising Allergic/Immunologic Allergic/Immunologic: Denies urticaria, Denies throat swelling and Denies wheezing Patient History <Antoinette Gaitan PA-C - Last Filed: 05/25/22 20:38> Medical History Atrial fibrillation Bradycardia COPD (chronic obstructive pulmonary disease) Gout History of colon polyps History of GI bleed HTN (hypertension) Hyperlipidemia Pacemaker Pollen allergies Surgical History History of cataract removal with insertion of prosthetic lens Status post hernia repair Family History Brother Age: 88 Prostate cancer Social History Smoking Status: Former smoker Smoking Status: Former smoker alcohol intake frequency: 0-2 drinks per day Substance Use Type: does not use Exam <Antoinette Gaitan PA-C - Last Filed: 05/25/22 20:38> Narrative Exam Narrative: Const General:?cooperative, healthy appearing and comfortable HENMS Head:?normal to inspection Ears:?hearing grossly normal bilaterally Nose:?external nose normal Face and sinus:?normal facial exam and sinuses nontender Mouth:?oral mucosae normal Throat:?posterior oropharynx normal Eyes General:?appearance normal, both eyes and all related structures Neck Neck:?normal visual inspection and no lymphadenopathy noted Resp Effort & Inspection:?normal respiratory effort Auscultation:?clear to auscultation bilaterally Cardio Rate:?regular rate Rhythm:?regular rhythm Musculoskeletal Left elbow appears swollen on the medial aspect, tender to palpation, consistent with patient putting weight on the arms over prolonged periods of time. There is full range of motion. Strength and sensation intact. Patient is neurovascularly intact. No bruising, deformities noted on exam. Neuro General:?patient alert, patient awake and patient oriented x3 Initial Vital Signs Initial Vital Signs: Vital Signs Temperature 98.0 F 05/25/22 18:12 Pulse Rate 81 05/25/22 18:12 Respiratory Rate 24 05/25/22 18:12 Blood Pressure 169/70 H 05/25/22 18:12 Pulse Oximetry 95 05/25/22 18:12 Oxygen Delivery Method 05/25/22 18:12 <Erna Dumont DO - Last Filed: 05/26/22 02:48> Initial Vital Signs Initial Vital Signs: Vital Signs Temperature 98.0 F 05/25/22 18:12 Pulse Rate 81 05/25/22 18:12 Respiratory Rate 24 05/25/22 18:12 Blood Pressure 169/70 H 05/25/22 18:12 Pulse Oximetry 95 05/25/22 18:12 Oxygen Delivery Method 05/25/22 18:12 Course <Antoinette Gaitan PA-C - Last Filed: 05/25/22 20:38> Orders Ordered: ED Orders 05/25/22 18:19 US perip venous up extrem lt Stat Vital Signs Vital signs: Vital Signs - 8 hr 05/25/22 18:12 Temperature 98.0 F Pulse Rate 81 Respiratory Rate 24 Blood Pressure 169/70 H Pulse Oximetry 95 Oxygen Delivery Method Room Air <Erna Dumont DO - Last Filed: 05/26/22 02:48> Orders Ordered: ED Orders 05/25/22 18:19 US perip venous up extrem lt Stat Vital Signs Vital signs: Vital Signs - 8 hr 05/25/22 18:12 Temperature 98.0 F Pulse Rate 81 Respiratory Rate 24 Blood Pressure 169/70 H Pulse Oximetry 95 Oxygen Delivery Method Room Air MDM - Extremity Injury (Upper) <Antoinette Gaitan PA-C - Last Filed: 05/25/22 20:38> Imaging Data US - DVT: Radiologist's Impression: PROCEDURE:? US PERIPH VENOUS UP EXTREM LT ? INDICATIONS:? PAIN, EDEMA ? TECHNIQUE:? Real-time imaging, as well as color and pulse Doppler interrogation, was performed of the left upper extremity deep veins from the inferior neck to the antecubital fossa.? ? COMPARISON:? The comparison exams may be incomplete. ? FINDINGS:? The internal jugular vein, visualized portions of the subclavian vein, axillary, and brachial veins are free of intraluminal thrombus.? Where physically possible, the veins are normally compressible.? Color and pulse Doppler demonstrate normal intraluminal flow, with expected phasicity and pulsatility.? Additional scanning of the cephalic and basilic veins of the superficial system demonstrate normal compressibility, without thrombus.? ? IMPRESSION:? No DVT in the left upper extremity. ? ? Dictated by: Oneil Collado M.D. on 05/25/2022 at 19:10 ? ? Approved by: Oneil Collado M.D. on 05/25/2022 at 19:12 ? [facility] Narrative Medical decision making narrative: 86-year-old male with past medical history hyperlipidemia, GI bleeds, hypertension, AFib, COPD presents to the ED with 2 days of left arm pain. Ultrasound was performed, which showed no acute findings such as a DVT. From physical exam and history, patient's symptoms are most likely consistent with trauma from putting his weight on the arm and elbow during the wood working. Recommend Rao wrap, rest, warm packs, ibuprofen, Tylenol. ED return precautions were discussed with patient. Patient verbalized understanding. Discharge Plan Departure Patient Disposition: Home Clinical Impression: Arm pain Instructions: DI for Arm Pain Activity Restrictions/Additional Instructions: You were evaluated in the ED today for left-sided arm pain. Your ultrasound did not show a blood clot. Your symptoms are likely due to a musculoskeletal sprain/strain from the wood working. You may continue to use a Rao wrap, use warmth, use Tylenol, ibuprofen for pain. Return to the ED if your symptoms worsen or you experience numbness, tingling, weakness. Prescriptions: No Action omega 0-rsn-bjl-fish oil [Fish Oil] 1,000 MG capsule 3,000 mg PO QPM Qty: 0 calcium carbonate 600 MG tablet 1 tab PO BID Qty: 0 multivitamin [Multiple Vitamins] 1 EACH tablet 1 tab PO DAILY Qty: 0 ascorbic acid (vitamin C) 500 MG tablet 500 mg PO DAILY Qty: 0 aspirin 81 mg Tablet,Delayed Release (Dr/Ec) 81 mg PO QAM acetaminophen 500 mg Tablet 500 - 1,000 mg PO PRN PRN (Reason: pain) spironolactone 25 mg Tablet 25 mg PO QAM tamsulosin 0.4 mg Capsule 0.8 mg PO QPM lisinopril 5 mg Tablet 5 mg PO QAM rosuvastatin 10 mg Tablet 10 mg PO QPM metoprolol tartrate 25 mg Tablet 12.5 mg PO BID magnesium oxide 400 mg magnesium Tablet 400 mg PO QAM albuterol sulfate 2.5 MG/3 ML solution for nebulization 3 ml INH BID PRN (Reason: Shortness Of Breath) allopurinol 300 MG tablet 300 mg PO QAM colchicine 0.6 MG capsule 0.6 mg PO BIDP PRN (Reason: Gout) Label Comments: home med list states 2 tabs am and 1 tab pm prn albuterol sulfate [Proventil HFA] 90 MCG/PUFF HFA aerosol inhaler 1 - 2 puff INH Q4HP cyanocobalamin (vitamin B-12) [Vitamin B-12] 1,000 mcg Tablet 1,000 mcg PO DAILY cholecalciferol (vitamin D3) [Vitamin D3] 1,000 unit Tablet 1,000 unit PO BID loratadine 10 mg Capsule 10 mg PO DAILY Glucosamine Chondroitin 1 cap PO DAILY amoxicillin-pot clavulanate [Augmentin] 875-125 mg tablet 1 tab PO Q12H Qty: 20 0RF Referrals: Clinton Grimm MD [Primary Care Provider] - Visit Report Forms: Patient Portal/API <Erna Dumont DO - Last Filed: 05/26/22 02:48> Cosign ED Attending Charlesature Attestation: I was immediately available in the department for consultation. Documentation has been reviewed. I agree with assessment and plan.
== END 2022-05-25 20:09 | disposition home or self-care (01) ==
PROVIDERS: Emergency Provider Student in an Organized Health Care Education/Training Program; Family Provider Internal Medicine; PCP Family Medicine
DX: M79.602 Pain in left arm (principal); R60.9 Edema, unspecified
CPT/HCPCS: 93971; 99283

== ENCOUNTER 2022-08-18 14:44 | Observation (INO) | payer MEDICARE, SELFPAY ==
[2022-08-18] VITALS (25 sets, daily range): BP systolic 111–139; BP diastolic 44–60; PULSE 59–69; RESP 18–41; TEMP 37.2–37.9; O2SAT 95–100; BMI 25.8; BMI 25.0
--- NOTE | 2022-08-18 15:06 | DI.RAD.S_ITS ---
PROCEDURE: XR CHEST 1V INDICATIONS: Shortness of breath TECHNIQUE: One view of the chest was acquired. COMPARISON: [facility], CT, CT CHEST WITH CONTRAST, 11/18/2021, 14:06. [facility], CR, XR CHEST 2V, 01/11/2019, 12:38. [facility], CR, CHEST 2 VIEW, 10/31/2017, 18:02. FINDINGS: Surgical changes and devices: Right chest pacemaker. Lungs and pleura: Streaky opacities present at the left lung base. Irregular opacity also demonstrated at the right lung base. No pleural effusion. No pneumothorax. Mediastinum: Mediastinal contours appear normal. Heart size is normal. Bones and chest wall: No suspicious bony lesions. Overlying soft tissues appear unremarkable. IMPRESSION: Mild right basilar opacity present, could represent the previously visualized masslike consolidation in the right lower lobe. Mild left basilar opacities also present, may represent atelectasis or scarring but aspiration or pneumonia are difficult to exclude. Dictated by: Tylor Garcia M.D. on 08/18/2022 at 16:12 Approved by: Tylor Garcia M.D. on 08/18/2022 at 16:31
[2022-08-18 15:45] LABS: COVID19 -Nasal RAPID Negative (Negative)
[2022-08-18 15:54] LABS: Hemoglobin 12.2 g/dL (13.5-17.5); Mean Corpuscular Hemoglobin 31.3 PG (26-34); Mean Corpuscular Volume 94.8 fL (80-100); Platelet Count 107 X10^3/uL (150-400); Red Cell Distribution Width 15.4 % (11.6-14.8); White Blood Cell Count 13.1 X10^3/uL (4.5-11.0)
[2022-08-18 16:05] LABS: INR 1.9 (0.9-1.3); Prothrombin Time 21.9 SECONDS (10.1-12.7)
[2022-08-18 16:14] LABS: Add Manual Diff / Slide Review YES
[2022-08-18 16:15] LABS: Lactate (Lactic Acid) 1.9 mmol/L (0.7-2.1)
[2022-08-18 16:16] LABS: Alanine Aminotransferase 19 IU/L (<50); Albumin 4.4 g/dL (3.5-5.0); Albumin Globulin Ratio 1.4 (1.0-2.8); Alkaline Phosphatase 60 U/L (38-126); Aspartate Aminotransferase 25 IU/L (17-59); BUN Creatinine Ratio 20.9 (6-22); Bilirubin Total 0.9 mg/dL (0.2-1.3); Blood Urea Nitrogen 23 mg/dL (9-20); Calcium 9.4 mg/dL (8.4-10.2); Carbon Dioxide 23 mmol/L (22-32); Chloride 102 mmol/L (98-107); Estimated Glomerular Filt Rate > 60 mL/min (>60); Globulin 3.1 g/dL (1.7-4.1); Glucose 129 mg/dL (80-110); HEMOLYSIS < 15 (0-50); Potassium 3.6 mmol/L (3.4-5.1); Sodium 139 mmol/L (137-145); Total Protein 7.5 g/dL (6.3-8.2)
[2022-08-18 16:28] LABS: NT-proBNP (BNP-Adult 18+) 2740 pg/mL (<450); Troponin I < 0.012 ng/mL (0.01-0.034)
[2022-08-18 16:35] LABS: Anisocytosis 1+; Neutrophils Absolute Manual 9432 /uL (3000-5900); Total Cells Counted 100
--- NOTE | 2022-08-18 17:31 | DI.CT.S_ITS ---
PROCEDURE: CT CHEST W CON INDICATIONS: shortness of breath TECHNIQUE: After the administration of intravenous contrast, 5 mm thick sections acquired from the pulmonary apices to the posterior costophrenic angles. 1 mm axial lung, 5 mm thick coronal and sagittal reformats and 7 mm axial MIP were acquired. For radiation dose reduction, the following was used: automated exposure control, adjustment of mA and/or kV according to patient size. COMPARISON: [facility], CT, CT CHEST WITH CONTRAST, 11/18/2021, 14:06. FINDINGS: Image quality: Excellent. Lungs and pleura: No acute air space opacities. Mild apically predominant emphysema. Ovoid opacity within the right lower lobe posteromedially measuring roughly 45 mm is not significantly changed. Fat containing left posterior hemidiaphragmatic hernia, before. No change in spiculated 10 mm nodule within the right upper lobe inferiorly. No pleural effusions or pneumothorax. Central and peripheral airways are patent and normal in caliber. Mediastinum: Heart size is enlarged. There is calcification of the coronary vasculature. No pericardial effusion. No mediastinal or hilar adenopathy by size criteria. Thoracic aorta and central pulmonary arteries are normal in size. Esophagus is normal in caliber. No hiatal hernia. Bones and chest wall: No suspicious bony lesions. No vertebral body compression fractures. No axillary or supraclavicular adenopathy by size criteria. Thyroid gland is within normal limits . Abdomen: Visualized upper abdominal solid organs appear normal. Upper abdominal bowel loops are normal in caliber. IMPRESSION: 1. No acute process. 2. No change in right lower lobe pulmonary opacity. 3. No change in spiculated right upper lobe pulmonary opacity. 4. Follow-up is recommended as below. Fleischner Society criteria for SOLID lung nodule followup. Nodule size (mm)Low-risk patientHigh-risk patient<6 (single or multiple)No routine followup.Optional CT at 12 months. 6-8 (single or multiple)CT at 6-12 months, then optional CT at 18-24 mo.CT at 6-12 months, then CT at 18-24 months. >8 (single)CT, PET-CT, or biopsy at 3 months. Same as for low-risk pts. >8 (multiple)CT at 3-6 months, then optional CT at 18-24 mo.CT at 3-6 months, then CT at 18-24 months. Fleischner Society criteria for SUB-SOLID lung nodule followup. Solitary pure ground-glass nodules<6 mm (ground glass or part solid)No followup needed. 6 mm or larger (ground glass)CT at 6-12 months to confirm persistence, then CT every 2 years until 5 years.6 mm or larger (part solid)CT at 3-6 months to confirm persistence, then annual CT until 5 years if unchanged and solid component remains <6 mm. Multiple sub-solid nodules<6 mmCT at 3-6 months, then CT consider at 2 & 4 years for high risk patients. [address] at 3-6 months. Subsequent management based on most suspicious lesions. Recommendations do not apply to lung cancer screening, patients with immunosuppression, or patients with known primary cancer. Dictated by: Sunday Guerra M.D. on 08/18/2022 at 18:11 Approved by: Sunday Guerra M.D. on 08/18/2022 at 18:14
--- NOTE | 2022-08-18 18:14 | ED_ITS ---
HPI - SOB/Dyspnea General Chief Complaint: Shortness of Breath/Dyspnea Stated Complaint: Fever, SOB, Poss pneumonia Time Seen by Provider: 08/18/22 17:13 Source: patient Mode of arrival: Family Vehicle Limitations: no limitations History of Present Illness HPI Narrative: Patient is an 86-year-old male history of CHF, COPD, hypertension, atrial fibrillation with pacemaker on Eliquis presenting today with shortness of breath and low-grade fever. He reports yesterday had a temperature of 99.5? generally not feeling well. Increasing shortness of breath with exertion. He denies any orthopnea or peripheral edema. He does not really complain of cough or chest pain. reports that he had influenza and pneumonia back in June and was hospitalized for 4 days at [facility]. It apparently took awhile to diagnosed with pneumonia so this time when he started not feeling well she promptly brought in here. He has no nausea or vomiting. But he does have obvious shivers and rigors. No diffuse sweating. Both patient and report that he had audible rales previously. Related Data Home Medications Medication Instructions Recorded Confirmed calcium carbonate 600 mg calcium 1 tab PO BID ##0 12/16/10 08/18/22 (1,500 mg) tablet omega 5-vyf-bau-fish oil 1,000 mg 3,000 mg PO QPM ##0 12/16/10 08/18/22 (120 mg-180 mg) capsule (Fish Oil) ascorbic acid (vitamin C) 500 mg 500 mg PO DAILY ##0 10/10/17 08/18/22 tablet multivitamin (Multiple Vitamins 1 tab PO DAILY ##0 10/10/17 08/18/22 tablet) Glucosamine Chondroitin 1 cap PO DAILY 01/11/19 08/18/22 acetaminophen 500 mg tablet 500 - 1,000 mg PO PRN PRN pain 01/11/19 08/18/22 albuterol sulfate 2.5 mg/3 mL 3 ml INH BID PRN Shortness Of 01/11/19 08/18/22 (0.083 %) solution for nebulization Breath albuterol sulfate 90 mcg/actuation 1 - 2 puff INH Q4HP PRN Shortness 01/11/19 08/18/22 aerosol inhaler (Proventil HFA) Of Breath allopurinol 300 mg tablet 300 mg PO QAM 01/11/19 08/18/22 cholecalciferol (vitamin D3) 25 1,000 unit PO BID 01/11/19 08/18/22 mcg (1,000 unit) tablet (Vitamin D3) colchicine 0.6 mg capsule 0.6 mg PO BIDP PRN Gout 01/11/19 08/18/22 cyanocobalamin (vitamin B-12) 1,000 mcg PO DAILY 01/11/19 08/18/22 1,000 mcg tablet (Vitamin B-12) lisinopril 5 mg tablet 5 mg PO QAM 01/11/19 08/18/22 loratadine 10 mg capsule 10 mg PO DAILY PRN Allergic 01/11/19 08/18/22 Symptoms magnesium oxide 400 mg PO QAM 01/11/19 08/18/22 metoprolol tartrate 25 mg tablet 12.5 mg PO BID 01/11/19 08/18/22 rosuvastatin 10 mg tablet 10 mg PO QPM 01/11/19 08/18/22 spironolactone 25 mg tablet 25 mg PO QAM 01/11/19 08/18/22 tamsulosin 0.4 mg capsule 0.8 mg PO QPM 01/11/19 08/18/22 apixaban 5 mg tablet (Eliquis) 2.5 mg PO BID 08/18/22 08/18/22 melatonin 5 mg tablet 5 mg PO BEDTIME 08/18/22 08/18/22 Allergies Allergy/AdvReac Type Severity Reaction Status Date / Time atorvastatin [ATORVASTATIN] Allergy Intermediate MUSCLE PAIN Unverified 10/26/17 12:53 simvastatin [SIMVASTATIN] Allergy Unknown Unverified 10/26/17 12:53 Review of Systems Review of Systems ROS Unobtainable: All systems reviewed & are unremarkable except as noted in HPI and below Patient History Medical History Atrial fibrillation Bradycardia COPD (chronic obstructive pulmonary disease) Gout History of colon polyps History of GI bleed HTN (hypertension) Hyperlipidemia Pacemaker Pollen allergies Surgical History History of cataract removal with insertion of prosthetic lens Status post hernia repair Family History Brother Age: 88 Prostate cancer Mother No pertinent past medical history Social History household members: spouse Smoking Status: Former smoker alcohol intake: current Smoking Status: Former smoker alcohol intake frequency: 0-2 drinks per day Substance Use Type: does not use Exam Initial Vital Signs Initial Vital Signs: Vital Signs Pulse Rate 59 L 08/18/22 14:58 Respiratory Rate 33 H 08/18/22 14:58 Pulse Oximetry 100 08/18/22 14:58 GENERAL: Alert pleasant 86-year-old male feel unwell currently shivering HEENT: Head atraumatic,EOMI, pupils reactive, face symmetric, moist mucous membranes CARDIOVASCULAR: Regular rate and rhythm without murmurs, rubs or gallops. RESPIRATORY: Tachypneic clear breath sounds no wheezing rales or rhonchi slightly decreased ABDOMEN: Soft, nontender. Normoactive bowel sounds all 4 quadrants. No guarding or rebound. EXTREMITIES: Normal range of motion, no clubbing or edema. Neurovascularly intact NEUROLOGICAL: Alert and oriented x4. SKIN: Warm, dry, no laceration, no petechiae, no rashes or lesions. Course Orders Ordered: ED Orders 08/19/22 05:00 Basic Metabolic Panel DAILY Complete Blood Count AUTO DIFF DAILY Magnesium DAILY 08/20/22 05:00 Basic Metabolic Panel DAILY Complete Blood Count AUTO DIFF DAILY Magnesium DAILY 08/21/22 05:00 Basic Metabolic Panel DAILY Complete Blood Count AUTO DIFF DAILY Magnesium DAILY Acetaminophen (Acetaminophen 325 Mg Tablet) 650 mg PO Q6H PRN PRN Reason: Fever/Mild Pain (1-3) Albuterol (Albuterol 2.5 Mg/3 Ml Neb (Adult)) 2.5 mg INH [id number] PRN PRN Reason: Shortness Of Breath Last Admin: 08/18/22 22:51 Dose: 2.5 mg Documented By: MUSTAPHA Allopurinol (Allopurinol 300 Mg Tablet) 300 mg PO DAILY [facility] Last Admin: 08/18/22 22:43 Dose: Not Given Documented By: Apixaban (Apixaban 5 Mg Tablet) 2.5 mg PO BID [facility] Last Admin: 08/18/22 23:05 Dose: 2.5 mg Documented By: Calcium Carbonate (Calcium Carbonate 600 Mg Tablet) 600 mg PO BID [facility] Cyanocobalamin (Cyanocobalamin (Vitamin B-12) 500 Mcg Tablet) 1,000 mcg PO DAILY [facility] Ceftriaxone Sodium 1,000 mg/ (Sodium Chloride) 100 mls @ 200 mls/hr IV Q24H [facility] Azithromycin 500 mg/ Dextrose 250 mls @ 250 mls/hr IV Q24H [facility] Stop: 08/21/22 21:59 Last Infusion: 08/19/22 00:10 Dose: 0 mls/hr Documented By: Admin: 08/18/22 23:07 Dose: 250 mls/hr Documented By: Lisinopril (Lisinopril 5 Mg Tablet) 5 mg PO DAILY [facility] Last Admin: 08/18/22 22:46 Dose: Not Given Documented By: Melatonin (Melatonin 3 Mg Tablet) 6 mg PO BEDTIME [facility] Last Admin: 08/18/22 23:06 Dose: 6 mg Documented By: Metoprolol Tartrate (Metoprolol Ir 25 Mg Tablet) 12.5 mg PO BID [facility] Last Admin: 08/18/22 22:45 Dose: 12.5 mg Documented By: Non-Formulary Medication (Rosuvastatin) 10 mg PO BEDTIME [facility] Last Admin: 08/18/22 23:05 Dose: 10 mg Documented By: Ondansetron HCl (Ondansetron 4 Mg Odt) 4 mg PO Q8HR PRN PRN Reason: Nausea And Vomiting Prednisone (Prednisone 20 Mg Tablet) 40 mg PO DAILY [facility] Spironolactone (Spironolactone 25 Mg Tablet) 25 mg PO DAILY [facility] Last Admin: 08/18/22 22:44 Dose: Not Given Documented By: Tamsulosin HCl (Tamsulosin 0.4 Mg Capsule) 0.8 mg PO QPM [facility] Last Admin: 08/18/22 22:45 Dose: 0.8 mg Documented By: Vitamin D (Cholecalciferol (Vitamin D3) 1,000 Unit Tablet) 1,000 unit PO BID [facility] Discontinued Medications Albuterol/Ipratropium (Albuterol/Ipratropium 3 Ml Ampul) 3 ml INH NOW ONE Stop: 08/18/22 18:27 Last Admin: 08/18/22 18:50 Dose: 3 ml Documented By: MUSTAPHA Aspirin (Aspirin Ec 81 Mg Tablet) 81 mg PO DAILY [facility] Last Admin: 08/18/22 22:15 Dose: Not Given Documented By: Atorvastatin Calcium (Atorvastatin 20 Mg Tablet) 40 mg PO BEDTIME [facility] Ceftriaxone Sodium 2,000 mg/ (Sodium Chloride) 100 mls @ 200 mls/hr IV NOW ONE Stop: 08/18/22 18:57 Last Admin: 08/18/22 21:16 Dose: Not Given Documented By: NANCY Azithromycin 500 mg/ Dextrose 250 mls @ 250 mls/hr IV NOW ONE Stop: 08/18/22 18:57 Last Admin: 08/18/22 21:16 Dose: Not Given Documented By: NANCY Piperacillin Sod/Tazobactam (Sod 4.5 gm/ Sodium Chloride) 100 mls @ 200 mls/hr IV NOW ONE Stop: 08/18/22 18:59 Last Infusion: 08/18/22 20:23 Dose: 0 mls/hr Documented By: Admin: 08/18/22 19:53 Dose: 200 mls/hr Documented By: GC Vancomycin HCl (Vancomycin) 1,000 mg in 200 mls @ 200 mls/hr IV NOW ONE Stop: 08/18/22 19:57 Last Infusion: 08/18/22 20:47 Dose: 0 mls/hr Documented By: Admin: 08/18/22 19:55 Dose: 200 mls/hr Documented By: ERIK Methylprednisolone (Methylprednisolone 125 Mg/2 Ml Vial) 125 mg IV NOW ONE Stop: 08/18/22 18:27 Last Admin: 08/18/22 18:44 Dose: 125 mg Documented By: NR Non-Formulary Medication (Rosuvastatin) 10 mg PO QPM [facility] Vital Signs Vital signs: Vital Signs - 8 hr 08/18/22 15:06 08/18/22 14:58 08/18/22 15:00 Temperature 99.5 F Pulse Rate 59 L 59 L Respiratory Rate 26 H 33 H Blood Pressure 139/60 128/58 L Pulse Oximetry 100 100 Oxygen Delivery Method Room Air Oxygen Flow Rate Fraction of Inspired Oxygen 08/18/22 15:00 08/18/22 15:30 08/18/22 15:31 Temperature Pulse Rate 60 60 Respiratory Rate 37 H 34 H Blood Pressure 112/54 L Pulse Oximetry 99 98 Oxygen Delivery Method Oxygen Flow Rate Fraction of Inspired Oxygen 08/18/22 15:31 08/18/22 16:00 08/18/22 16:00 Temperature Pulse Rate 60 69 Respiratory Rate 33 H 33 H Blood Pressure 120/56 L Pulse Oximetry 98 98 Oxygen Delivery Method Oxygen Flow Rate Fraction of Inspired Oxygen 08/18/22 16:30 08/18/22 16:31 08/18/22 16:31 Temperature Pulse Rate 60 60 Respiratory Rate 31 H 32 H Blood Pressure 118/58 L Pulse Oximetry 98 98 Oxygen Delivery Method Oxygen Flow Rate Fraction of Inspired Oxygen 08/18/22 17:00 08/18/22 17:01 08/18/22 17:01 Temperature Pulse Rate 60 60 Respiratory Rate 36 H 32 H Blood Pressure 121/56 L Pulse Oximetry 97 95 Oxygen Delivery Method Oxygen Flow Rate Fraction of Inspired Oxygen 08/18/22 17:30 08/18/22 17:30 08/18/22 18:50 Temperature Pulse Rate 63 60 Respiratory Rate 30 H 20 Blood Pressure 130/58 L Pulse Oximetry 99 97 Oxygen Delivery Method Room Air Oxygen Flow Rate 0 Fraction of Inspired Oxygen 21 08/18/22 18:18 08/18/22 18:30 08/18/22 18:58 Temperature 100.3 F H Pulse Rate 60 61 60 Respiratory Rate 31 H 34 H Blood Pressure Pulse Oximetry 97 99 100 Oxygen Delivery Method Oxygen Flow Rate Fraction of Inspired Oxygen 08/18/22 18:58 08/18/22 19:00 08/18/22 19:01 Temperature Pulse Rate 60 Respiratory Rate 34 H Blood Pressure 126/60 111/56 L Pulse Oximetry 100 Oxygen Delivery Method Oxygen Flow Rate Fraction of Inspired Oxygen 08/18/22 19:01 Temperature Pulse Rate 60 Respiratory Rate 36 H Blood Pressure Pulse Oximetry 99 Oxygen Delivery Method Oxygen Flow Rate Fraction of Inspired Oxygen MDM - SOB/Dyspnea Lab Data 08/18/22 15:33 08/18/22 15:33 Labs: Lab Results 08/18/22 08/18/22 08/18/22 Range/Units 15:25 15:33 15:33 WBC 13.1 H (4.5-11.0) X10^3/uL RBC 3.90 L (4.5-5.9) X10^6/uL Hgb 12.2 L (13.5-17.5) g/dL Hct 37.0 L (41-53) % MCV 94.8 (80-100) fL MCH 31.3 (26-34) PG MCHC 33.0 (30-36) % RDW 15.4 H (11.6-14.8) % Plt Count 107 L (150-400) X10^3/uL Neut % (Auto) Not Reportable Lymph % (Auto) Not Reportable Beaver % (Auto) Not Reportable Eos % (Auto) Not Reportable Baso % (Auto) Not Reportable Lymph # (Auto) Not Reportable Beaver # (Auto) Not Reportable Baso # (Auto) Not Reportable Total Counted 100 Seg Neutrophils % 72.0 H (38-70) % Lymphocytes % (Manual) 4.0 L (25-45) % Atypical Lymphs % 3.0 H ( - 0) % Monocytes % (Manual) 21.0 H (2-11) % Neutrophils # (Manual) 9432 H (3994-9663) /uL RBC Morphology See below Anisocytosis 1+ H PT 21.9 H (10.1-12.7) SECONDS INR 1.9 H (0.9-1.3) Sodium (137-145) mmol/L Potassium (3.4-5.1) mmol/L Chloride (98-107) mmol/L Carbon Dioxide (22-32) mmol/L BUN (9-20) mg/dL Creatinine (0.66-1.25) mg/dL Estimated GFR (>60) mL/min BUN/Creatinine Ratio (6-22) Glucose (80-110) mg/dL Lactate (0.7-2.1) mmol/L Calcium (8.4-10.2) mg/dL Total Bilirubin (0.2-1.3) mg/dL AST (17-59) IU/L ALT (<50) IU/L Alkaline Phosphatase (38-126) U/L Troponin I (0.01-0.034) ng/mL NT-Pro-B Natriuret Pep (<450) pg/mL Total Protein (6.3-8.2) g/dL Albumin (3.5-5.0) g/dL Globulin (1.7-4.1) g/dL Albumin/Globulin Ratio (1.0-2.8) SARS-CoV-2 (PCR) Negative (Negative) Influenza A (RT-PCR) (NEGATIVE) Influenza B (RT-PCR) (NEGATIVE) RSV (PCR) (Negative) 08/18/22 08/18/22 08/18/22 Range/Units 15:33 15:33 17:30 WBC (4.5-11.0) X10^3/uL RBC (4.5-5.9) X10^6/uL Hgb (13.5-17.5) g/dL Hct (41-53) % MCV (80-100) fL MCH (26-34) PG MCHC (30-36) % RDW (11.6-14.8) % Plt Count (150-400) X10^3/uL Neut % (Auto) Lymph % (Auto) Beaver % (Auto) Eos % (Auto) Baso % (Auto) Lymph # (Auto) Beaver # (Auto) Baso # (Auto) Total Counted Seg Neutrophils % (38-70) % Lymphocytes % (Manual) (25-45) % Atypical Lymphs % ( - 0) % Monocytes % (Manual) (2-11) % Neutrophils # (Manual) (8506-7591) /uL RBC Morphology Anisocytosis PT (10.1-12.7) SECONDS INR (0.9-1.3) Sodium 139 (137-145) mmol/L Potassium 3.6 (3.4-5.1) mmol/L Chloride 102 (98-107) mmol/L Carbon Dioxide 23 (22-32) mmol/L BUN 23 H (9-20) mg/dL Creatinine 1.10 (0.66-1.25) mg/dL Estimated GFR > 60 (>60) mL/min BUN/Creatinine Ratio 20.9 (6-22) Glucose 129 H (80-110) mg/dL Lactate 1.9 (0.7-2.1) mmol/L Calcium 9.4 (8.4-10.2) mg/dL Total Bilirubin 0.9 (0.2-1.3) mg/dL AST 25 (17-59) IU/L ALT 19 (<50) IU/L Alkaline Phosphatase 60 (38-126) U/L Troponin I < 0.012 (0.01-0.034) ng/mL NT-Pro-B Natriuret Pep 2740 H (<450) pg/mL Total Protein 7.5 (6.3-8.2) g/dL Albumin 4.4 (3.5-5.0) g/dL Globulin 3.1 (1.7-4.1) g/dL Albumin/Globulin Ratio 1.4 (1.0-2.8) SARS-CoV-2 (PCR) Negative (Negative) Influenza A (RT-PCR) Flu a negative (NEGATIVE) Influenza B (RT-PCR) Flu b negative (NEGATIVE) RSV (PCR) Negative (Negative) Imaging Data Chest x-ray: Radiologist's Impression: XRay Report Signed Patient: Clinton Monte MR#: [id number] : 1935 Acct:[id number] Age/Sex: 86 / M Date of Service: 08/18/22 Loc: ED Accession Number: [id number] ?? Procedure: XR chest 1V Ordering Provider: Clinton Jin MD PROCEDURE:? XR CHEST 1V ? INDICATIONS:? Shortness of breath ? TECHNIQUE:? One view of the chest was acquired.? ? COMPARISON:? [facility], CT, CT CHEST WITH CONTRAST, 11/18/2021, 14:06.? Formerly [facility], CR, XR CHEST 2V, 01/11/2019, 12:38.? Former[facility], CR, CHEST 2 VIEW, 10/31/2017, 18:02. ? FINDINGS:? ? Surgical changes and devices:? Right chest pacemaker. ? Lungs and pleura:? Streaky opacities present at the left lung base.? Irregular opacity also demonstrated at the right lung base.? No pleural effusion.? No pneumothorax. ? Mediastinum:? Mediastinal contours appear normal.? Heart size is normal.? ? Bones and chest wall:? No suspicious bony lesions.? Overlying soft tissues appear unremarkable.? ? IMPRESSION:? Mild right basilar opacity present, could represent the previously visualized masslike consolidation in the right lower lobe.? Mild left basilar opacities also present, may represent atelectasis or scarring but aspiration or pneumonia are difficult to exclude. ? ? Dictated by: Tylor Garcia M.D. on 08/18/2022 at 16:12 ? ? CT chest: Radiologist's Impression: CT Scan Report Signed Patient: Clinton Monte MR#: [id number] : 1935 Acct:[id number] Age/Sex: 86 / M Date of Service: 08/18/22 Loc: ED Accession Number: [id number] ?? Procedure: CT chest w con Ordering Provider: Clinton Jin MD PROCEDURE:? CT CHEST W CON ? INDICATIONS:? shortness of breath ? TECHNIQUE:? After the administration of intravenous contrast, 5 mm thick sections acquired from the pulmonary apices to the posterior costophrenic angles.? 1 mm axial lung, 5 mm thick coronal and sagittal reformats and 7 mm axial MIP were acquired.? For radiation dose reduction, the following was used:? automated exposure control, adjustment of mA and/or kV according to patient size.? ? COMPARISON:? [facility], CT, CT CHEST WITH CONTRAST, 11/18/2021, 14:06. ? FINDINGS:? Image quality:? Excellent.? ? Lungs and pleura:? No acute air space opacities.? Mild apically predominant emphysema.? Ovoid opacity within the right lower lobe posteromedially measuring roughly 45 mm is not significantly changed.? Fat containing left posterior hemidiaphragmatic hernia, before.? No change in spiculated 10 mm nodule within the right upper lobe inferiorly.? No pleural effusions or pneumothorax.? Central and peripheral airways are patent and normal in caliber.? ? Mediastinum:? Heart size is enlarged.? There is calcification of the coronary vasculature.? No pericardial effusion.? No mediastinal or hilar adenopathy by size criteria.? Thoracic aorta and central pulmonary arteries are normal in size.? Esophagus is normal in caliber.? No hiatal hernia.? ? Bones and chest wall:? No suspicious bony lesions.? No vertebral body compression fractures.? No axillary or supraclavicular adenopathy by size criteria.? Thyroid gland is within normal limits .? ? Abdomen:? Visualized upper abdominal solid organs appear normal.? Upper abdominal bowel loops are normal in caliber.? ? IMPRESSION:? 1. No acute process. 2. No change in right lower lobe pulmonary opacity. 3. No change in spiculated right upper lobe pulmonary opacity. 4.? Follow-up is recommended as below. ? Fleischner Society criteria for SOLID lung nodule followup.? Nodule size (mm)Low-risk patientHigh-risk patient<6 (single or multiple)No routine followup.Optional CT at 12 months. 6-8 (single or multiple)CT at 6-12 months, then optional CT at 18-24 mo.CT at 6-12 months, then CT at 18-24 months.? >8 (single)CT, PET-CT, or biopsy at 3 months. Same as for low-risk pts.? >8 (multiple)CT at 3-6 months, then optional CT at 18-24 mo.CT at 3-6 months, then CT at 18-24 months.? Fleischner Society criteria for SUB-SOLID lung nodule followup.? Solitary pure ground-glass nodules<6 mm (ground glass or part solid)No followup needed.? 6 mm or larger (ground glass)CT at 6-12 months to confirm persistence, then CT every 2 years until 5 years.6 mm or larger (part solid)CT at 3-6 months to confirm persistence, then annual CT until 5 years if unchanged and solid component remains <6 mm.? Multiple sub-solid nodules<6 mmCT at 3-6 months, then CT consider at 2 & 4 years for high risk patients. [address] or [address] at 3-6 months. Subsequent management based on most suspicious lesions. Recommendations do not apply to lung cancer screening, patients with immunosuppression, or patients with known primary cancer. ? ? ? Dictated by: Sunday Guerra M.D. on 08/18/2022 at 18:11 ? ? Approved by: Sunday Guerra M.D. on 08/18/2022 at 18:14 ? ECG Data Interpretation: Paced rhythm rate 84 similar to previous EKGs MDM Narrative Medical decision making narrative: Patient 86-year-old male with multiple comorbidities including AFib pacemaker hypertension presents today with fever and weakness. He develops fever here in the ED of 100.3 he was shaking when I evaluated him. X-ray was concerning for pneumonia. He recently had hospitalization for pneumonia in June. Possibly an increased cough over last couple of he is. CT chest was done for mass. Both patient and state that he has previous lung cancer and they know that he has scarring in his lung. Concern for pneumonia for patient. He is mild leukocytosis of 13, lactate 1.9. Patient is tachypneic on exam. The patient's BNP is elevated however he does not have rales or rhonchi on exam and overall appears dry. I think more likely to be pneumonia and COPD exacerbation rather than congestive heart failure. He did receive albuterol in the ED which seemed to help a lot. Patient patient's previous history of multiple episodes of sepsis. Along with his port score hospitalization is recommended. Dr. Weston accepts patient PSI/PORT Score: Pneumonia Severity Index for CAP from [email or web address] on 08/18/2022 All calculations should be rechecked by clinician prior to use RESULT SUMMARY: 154 points Risk Class V, 27.0-29.2% mortality. Hospitalization recommended based on risk. INPUTS: Age ?> 86 years Sex ?> 0 = Male retirement resident ?> 0 = No Neoplastic disease ?> 30 = Yes Liver disease history ?> 0 = No CHF history ?> 10 = Yes Cerebrovascular disease history ?> 0 = No Renal disease history ?> 0 = No Altered mental status ?> 0 = No Respiratory rate &ge;30 breaths/min ?> 20 = Yes Systolic blood pressure <90 mmHg ?> 0 = No Temperature <35&deg;C (95&deg;F) or >39.9&deg;C (103.8&deg;F) ?> 0 = No Pulse &ge;125 beats/min ?> 0 = No pH <7.35 ?> 0 = No BUN &ge;30 mg/dL or &ge;11 mmol/L ?> 0 = No Sodium <130 mmol/L ?> 0 = No Glucose &ge;250 mg/dL or &ge;14 mmol/L ?> 0 = No Hematocrit <30% ?> 10 = Yes Partial pressure of oxygen <60 mmHg or <8 kPa ?> 0 = No Pleural effusion on x-ray ?> 0 = No Discharge Plan Departure Patient Disposition: Admitted As Inpatient Clinical Impression: Pneumonia Admit Date/Time: 08/18/22 19:39 Admit Provider: Trace Araiza
[2022-08-18 18:44] LABS: Influenza A - CEPHEID Flu A NEGATIVE (NEGATIVE); Influenza B - CEPHEID Flu B NEGATIVE (NEGATIVE); Respiratory Syncytial Virus Negative (Negative)
[2022-08-18] MEDS: methylPREDNISolone 125 MG/2 ML VIAL IV (18:44)
[2022-08-18] MEDS: ALBUTEROL/IPRATROPIUM 3 ML AMPUL INH (18:50)
[2022-08-18 18:59] LABS: COVID-19 CEPHEID 4-PLEX PCR Negative (Negative)
[2022-08-18] MEDS: PIPERACILLIN/TAZO 4.5 GM in SODIUM CHLORIDE 0.9% 100 ML IV (19:53)
[2022-08-18] MEDS: VANCOMYCIN 1,000 MG/200 ML PIGGYBACK 200 MG IV (19:55)
--- NOTE | 2022-08-18 21:55 | PM.HP.1 ---
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 treated with radiation) who presented to the emergency room with weakness and subjective fever for the past 2 days. Patient states that for the past 2 days he has felt more weak with generalized malaise and subjective fever. His highest measured temperature at home was 99.5, and he does endorse mildly worsened shortness of breath. He does report a slight increase in his cough over the past couple of days, but no increase in sputum production. He states that he is the same weight that he typically is within a couple of lb, as he does measure himself every day. He denies any lower extremity edema, headaches, vision changes, recent sick contacts, rhinorrhea, sore throat, ear pain, rash, abdominal pain, diarrhea, dysuria, or urinary frequency. He reports previous COVID and flu infection, with COVID infection being in March of 2022, followed by a flu infection where he subsequently developed a pneumonia and was admitted to [facility] in [place] for 4 days and discharged on July 06, 2022. In the emergency room, T-max was 100.3? F, the remainder of his vital signs were unremarkable except for a mild tachypnea. He was greater than 96% on room air. Chest x-ray was performed which showed some scarring in his lung bases, CT with contrast showed no acute findings. Laboratory evaluation revealed a mild leukocytosis with WBC 13.1, mild thrombocytopenia with platelets of 107. Chemistry panel was unremarkable. Troponin was negative. ProBNP was 2740. COVID-19, flu, and RSV were negative by PCR. Patient History Medical History Atrial fibrillation Bradycardia COPD (chronic obstructive pulmonary disease) Gout History of colon polyps History of GI bleed HTN (hypertension) Hyperlipidemia Pacemaker Pollen allergies Surgical History History of cataract removal with insertion of prosthetic lens Status post hernia repair Family & Social History Family History Brother Age: 88 Prostate cancer Mother No pertinent past medical history Social History: household members spouse Prior Living Arrangements House Safety & Behavioral: Feels Safe in Current Yes Environment Been Physically Hurt or No Threatened By a Person Tobacco & Substance use: Tobacco type cigarettes Smoking Status Former smoker alcohol intake current alcohol intake frequency 0-2 drinks per day Substance Use Type does not use Meds Home Medications and Allergies Home Medications Medication Instructions Recorded Confirmed Type calcium carbonate 600 mg calcium 1 tab PO BID ##0 12/16/10 08/18/22 History (1,500 mg) tablet omega 9-myl-sfr-fish oil 1,000 mg 3,000 mg PO QPM ##0 12/16/10 08/18/22 History (120 mg-180 mg) capsule (Fish Oil) ascorbic acid (vitamin C) 500 mg 500 mg PO DAILY ##0 10/10/17 08/18/22 History tablet multivitamin (Multiple Vitamins 1 tab PO DAILY ##0 10/10/17 08/18/22 History tablet) Glucosamine Chondroitin 1 cap PO DAILY 01/11/19 08/18/22 History acetaminophen 500 mg tablet 500 - 1,000 mg PO PRN PRN pain 01/11/19 08/18/22 History albuterol sulfate 2.5 mg/3 mL 3 ml INH BID PRN Shortness Of 01/11/19 08/18/22 History (0.083 %) solution for nebulization Breath albuterol sulfate 90 mcg/actuation 1 - 2 puff INH Q4HP PRN Shortness 01/11/19 08/18/22 History aerosol inhaler (Proventil HFA) Of Breath allopurinol 300 mg tablet 300 mg PO QAM 01/11/19 08/18/22 History cholecalciferol (vitamin D3) 25 1,000 unit PO BID 01/11/19 08/18/22 History mcg (1,000 unit) tablet (Vitamin D3) colchicine 0.6 mg capsule 0.6 mg PO BIDP PRN Gout 01/11/19 08/18/22 History cyanocobalamin (vitamin B-12) 1,000 mcg PO DAILY 01/11/19 08/18/22 History 1,000 mcg tablet (Vitamin B-12) lisinopril 5 mg tablet 5 mg PO QAM 01/11/19 08/18/22 History loratadine 10 mg capsule 10 mg PO DAILY PRN Allergic 01/11/19 08/18/22 History Symptoms magnesium oxide 400 mg PO QAM 01/11/19 08/18/22 History metoprolol tartrate 25 mg tablet 12.5 mg PO BID 01/11/19 08/18/22 History rosuvastatin 10 mg tablet 10 mg PO QPM 01/11/19 08/18/22 History spironolactone 25 mg tablet 25 mg PO QAM 01/11/19 08/18/22 History tamsulosin 0.4 mg capsule 0.8 mg PO QPM 01/11/19 08/18/22 History apixaban 5 mg tablet (Eliquis) 2.5 mg PO BID 08/18/22 08/18/22 History melatonin 5 mg tablet 5 mg PO BEDTIME 08/18/22 08/18/22 History Allergies Allergy/AdvReac Type Severity Reaction Status Date / Time atorvastatin [ATORVASTATIN] Allergy Intermediate MUSCLE PAIN Unverified 10/26/17 12:53 simvastatin [SIMVASTATIN] Allergy Unknown Unverified 10/26/17 12:53 Review of Systems Review of Systems Narrative: All other systems reviewed with the patient and are negative unless otherwise stated. Exam Vital Signs (past 8 hours): - 08/18/22 15:06 08/18/22 14:58 08/18/22 15:00 Temperature 99.5 F Pulse Rate 59 L 59 L Respiratory Rate 26 H 33 H Blood Pressure 139/60 128/58 L Pulse Oximetry 100 100 Oxygen Delivery Method Room Air Oxygen Flow Rate Fraction of Inspired Oxygen 08/18/22 15:00 08/18/22 15:30 08/18/22 15:31 Temperature Pulse Rate 60 60 Respiratory Rate 37 H 34 H Blood Pressure 112/54 L Pulse Oximetry 99 98 Oxygen Delivery Method Oxygen Flow Rate Fraction of Inspired Oxygen 08/18/22 15:31 08/18/22 16:00 08/18/22 16:00 Temperature Pulse Rate 60 69 Respiratory Rate 33 H 33 H Blood Pressure 120/56 L Pulse Oximetry 98 98 Oxygen Delivery Method Oxygen Flow Rate Fraction of Inspired Oxygen 08/18/22 16:30 08/18/22 16:31 08/18/22 16:31 Temperature Pulse Rate 60 60 Respiratory Rate 31 H 32 H Blood Pressure 118/58 L Pulse Oximetry 98 98 Oxygen Delivery Method Oxygen Flow Rate Fraction of Inspired Oxygen 08/18/22 17:00 08/18/22 17:01 08/18/22 17:01 Temperature Pulse Rate 60 60 Respiratory Rate 36 H 32 H Blood Pressure 121/56 L Pulse Oximetry 97 95 Oxygen Delivery Method Oxygen Flow Rate Fraction of Inspired Oxygen 08/18/22 17:30 08/18/22 17:30 08/18/22 18:50 Temperature Pulse Rate 63 60 Respiratory Rate 30 H 20 Blood Pressure 130/58 L Pulse Oximetry 99 97 Oxygen Delivery Method Room Air Oxygen Flow Rate 0 Fraction of Inspired Oxygen 21 08/18/22 18:18 08/18/22 18:30 08/18/22 18:58 Temperature 100.3 F H Pulse Rate 60 61 60 Respiratory Rate 31 H 34 H Blood Pressure Pulse Oximetry 97 99 100 Oxygen Delivery Method Oxygen Flow Rate Fraction of Inspired Oxygen 08/18/22 18:58 08/18/22 19:00 08/18/22 19:01 Temperature Pulse Rate 60 Respiratory Rate 34 H Blood Pressure 126/60 111/56 L Pulse Oximetry 100 Oxygen Delivery Method Oxygen Flow Rate Fraction of Inspired Oxygen 08/18/22 19:01 08/18/22 19:45 08/18/22 20:00 Temperature Pulse Rate 60 60 60 Respiratory Rate 36 H 24 41 H Blood Pressure Pulse Oximetry 99 97 96 Oxygen Delivery Method Oxygen Flow Rate Fraction of Inspired Oxygen 08/18/22 20:40 08/18/22 21:15 08/18/22 21:01 Temperature 99.8 F H 98.9 F Pulse Rate 60 60 Respiratory Rate 18 21 Blood Pressure 111/56 L 122/45 L Pulse Oximetry 98 98 95 Oxygen Delivery Method Room Air Room Air Oxygen Flow Rate 0 Fraction of Inspired Oxygen Fraction of Inspired Oxygen 21 SaO2/FiO2 Ratio 461 Oxygen Delivery Method Room Air Oxygen Flow Rate 0 Narrative Exam Narrative: General:? Patient is well developed and well nourished, in no distress at this time. HEENT:? Normocephalic, atraumatic, extraocular muscles intact, oral pharynx is clear and mucous membranes are moist. Neck: supple and symmetric, trachea is midline, no cervical adenopathy. Negative for JVD Chest:? Normal AP diameter and contour without kyphoscoliosis, no tachypnea, equal chest rise bilaterally. Lungs:? bibasilar rales, no wheezing or rhonchi. Decreased air movement. Cardio:?RRR no m/r/g. Abdomen: S NT ND. No CVA tenderness. Musculoskeletal:? Muscle strength and tone are equal within normal limits, no deformity. Extremities: No edema or joint effusions. No cyanosis or clubbing. Skin:? Pale,? Warm to touch,dry and intact without rashes, ulcerations or petechiae.? Neuro:? Alert and orientated x3,? sensation to touch intact in all extremities, no gross deficits noted of cranial nerves. Psych:? Patient has a well-kept appearance, appropriate affect, mental status attitude thought context and judgment are appropriate for age. Objective ECG Impression: Ventricular-paced rhythm with occasional premature ventricular complexes as interpreted by me Labs 08/18/22 15:33 08/18/22 15:33 Labs: Laboratory Results - last 24 hr 08/18/22 08/18/22 08/18/22 15:25 15:33 15:33 WBC 13.1 H RBC 3.90 L Hgb 12.2 L Hct 37.0 L MCV 94.8 MCH 31.3 MCHC 33.0 RDW 15.4 H Plt Count 107 L Neut % (Auto) Not Reportable Lymph % (Auto) Not Reportable Island % (Auto) Not Reportable Eos % (Auto) Not Reportable Baso % (Auto) Not Reportable Lymph # (Auto) Not Reportable Island # (Auto) Not Reportable Baso # (Auto) Not Reportable Total Counted 100 Seg Neutrophils % 72.0 H Lymphocytes % (Manual) 4.0 L Atypical Lymphs % 3.0 H Monocytes % (Manual) 21.0 H Neutrophils # (Manual) 9432 H RBC Morphology See below Anisocytosis 1+ H PT 21.9 H INR 1.9 H Sodium Potassium Chloride Carbon Dioxide BUN Creatinine Estimated GFR BUN/Creatinine Ratio Glucose Lactate Calcium Total Bilirubin AST ALT Alkaline Phosphatase Troponin I NT-Pro-B Natriuret Pep Total Protein Albumin Globulin Albumin/Globulin Ratio SARS-CoV-2 (PCR) Negative Influenza A (RT-PCR) Influenza B (RT-PCR) RSV (PCR) 08/18/22 08/18/22 08/18/22 15:33 15:33 17:30 WBC RBC Hgb Hct MCV MCH MCHC RDW Plt Count Neut % (Auto) Lymph % (Auto) Island % (Auto) Eos % (Auto) Baso % (Auto) Lymph # (Auto) Island # (Auto) Baso # (Auto) Total Counted Seg Neutrophils % Lymphocytes % (Manual) Atypical Lymphs % Monocytes % (Manual) Neutrophils # (Manual) RBC Morphology Anisocytosis PT INR Sodium 139 Potassium 3.6 Chloride 102 Carbon Dioxide 23 BUN 23 H Creatinine 1.10 Estimated GFR > 60 BUN/Creatinine Ratio 20.9 Glucose 129 H Lactate 1.9 Calcium 9.4 Total Bilirubin 0.9 AST 25 ALT 19 Alkaline Phosphatase 60 Troponin I < 0.012 NT-Pro-B Natriuret Pep 2740 H Total Protein 7.5 Albumin 4.4 Globulin 3.1 Albumin/Globulin Ratio 1.4 SARS-CoV-2 (PCR) Negative Influenza A (RT-PCR) Flu a negative Influenza B (RT-PCR) Flu b negative RSV (PCR) Negative Assessment & Plan Assessment & Plan narrative: 1. Community acquired pneumonia - continue ceftriaxone and azithromycin. Despite initial imaging without focal infiltrates given reported fever, shortness of breath, and fatigue clinically most likely etiology for his symptoms remain pneumonia at this time. - will also send urinalysis given BPH history and prior UTI requiring admission in the past per patient's spouse - blood cultures obtained in the ER, follow up results. - COVID, flu, RSV, negative by PCR. 2. COPD with exacerbation - continue prednisone x5 days. Albuterol nebs prn 3. Possible acute on chronic heart failure - possible heart failure with recent dyspnea and elevated pro-BNP. However he is at his reported baseline weight and CXR is clear despite rales on exam. - consider low dose furosemide depending on patient's ongoing symptoms - no indication for TTE at this time, would not change current management. But should symptoms persist or worsen would check echo. - try to obtain records from [facility] regarding previous heart failure. - continue home spironolactone. 4. HTN - continue home medications 5. HLD - continue statin 6. BPH - continue home tamsulosin 7. History of lung cancer 8. Chronic atrial fibrillation - continue home apixaban, EKG shows paced rhythm. 9. Thrombocytopenia, acute - Plt of 107, presume in setting of acute infection, continue to monitor. Code: Full, as discussed with the patient. Surrogate decision maker is the patient's spouse, Yodit. DVT: on apixaban Dispo: admitted under inpatient status given patient's significant morbidity and mortality risk from elevated PSI score indicating class IV risk. His stay is expected to exceed two midnights. I have utilized all available immediate resources to obtain, update, or review the patient's current medications. Discussed management and plan with patient and spouse. Infomation was gathered from ER provider, patient's spouse, and patient. COVID-19 COVID-19 status: Negative Time Spent With Patient Critical Care time: I spent a total of [] minutes of critical care time on this patient's care today; this time is exclusive of procedural time. Quality VTE Deep Vein Thrombosis/Pulmonary Embolism Present on Admission: No MIPS - Admit I confirm the patient?s Advance Care Plan is present, Code status is documented, Surrogate decision maker is in patient?s record [If Yes, STOP here]: Yes
[2022-08-18] MEDS: METOPROLOL IR 25 MG TABLET 12.5 MG PO (22:45)
[2022-08-18] MEDS: TAMSULOSIN 0.4 MG CAPSULE 0.8 MG PO (22:45)
[2022-08-18] MEDS: ALBUTEROL 2.5 MG/3 ML NEB (ADULT) INH (22:51)
[2022-08-18] MEDS: APIXABAN 5 MG TABLET 2.5 MG PO (23:05)
[2022-08-18] MEDS: ROSUVASTATIN 10 MG 10 EACH PO (23:05)
[2022-08-18] MEDS: MELATONIN 3 MG TABLET 6 MG PO (23:06)
[2022-08-18] MEDS: AZITHROMYCIN 500 MG in DEXTROSE 5% IN WATER 250 ML 250 MG IV (23:07)
[2022-08-19 00:52] VITALS: O2SAT 97
[2022-08-19 01:29] LABS: Appearance Urine UA CLEAR; Bilirubin Urine UA NEGATIVE (NEGATIVE); Color Urine UA YELLOW; Glucose Urine UA TRACE g/dL (Negative); Ketones Urine UA TRACE (NEGATIVE); Leukocyte Esterase Urine UA NEGATIVE (NEGATIVE); Nitrite Urine UA NEGATIVE (Negative); Occult Blood Urine UA TRACE-INTACT (Negative); Protein Urine UA NEGATIVE (Negative); Specific Gravity Urine UA 1.015 (1.000-1.035); Urobilinogen Urine UA 0.2 E.U./dL (0.2); pH Urine UA 5.5 (4.5-8.0)
[2022-08-19 02:58] LABS: Bacteria Urine None Seen; Culture Indicated Urine Cult Not Indicated; RBC Urine 0-1/HPF (0-5/HPF); WBC Urine None Seen (0-5/HPF)
[2022-08-19 04:26] VITALS: BP 111/55; PULSE 60; RESP 17; TEMP 35.7; O2SAT 98
[2022-08-19 06:28] LABS: Add Manual Diff / Slide Review NO; Basophils Absolute Auto 0 /uL (0-100); Basophils Percent Auto 0.1 % (0-2); Eosinophils Absolute Auto 0 /uL (0-450); Hematocrit 31.7 % (41-53); Hemoglobin 10.4 g/dL (13.5-17.5); Lymphocytes Absolute Auto 300 /uL (1100-4500); Mean Corpuscular HGB Conc 32.9 % (30-36); Mean Corpuscular Hemoglobin 31.6 PG (26-34); Mean Corpuscular Volume 95.9 fL (80-100); Monocytes Absolute Auto 1000 /uL (0-900); Monocytes Percent Auto 10.1 % (3-14); Neutrophils Absolute Auto 8700 /uL (1500-7000); Neutrophils Percent Auto 86.8 % (50-75); Platelet Count 89 X10^3/uL (150-400)
[2022-08-19 06:33] LABS: BUN Creatinine Ratio 18.5 (6-22); Blood Urea Nitrogen 23 mg/dL (9-20); Calcium 8.4 mg/dL (8.4-10.2); Carbon Dioxide 21 mmol/L (22-32); Chloride 106 mmol/L (98-107); Estimated Glomerular Filt Rate 57 mL/min (>60); Glucose 224 mg/dL (80-110); HEMOLYSIS < 15 (0-50); Magnesium 1.6 mg/dL (1.6-2.3); Potassium 3.6 mmol/L (3.4-5.1); Sodium 138 mmol/L (137-145)
[2022-08-19 08:00] VITALS: BP 108/57; PULSE 60; RESP 18; TEMP 36.3; O2SAT 96
[2022-08-19 09:07] VITALS: PULSE 60; RESP 16; O2SAT 96
[2022-08-19] MEDS: ALBUTEROL 2.5 MG/3 ML NEB (ADULT) INH (09:07)
[2022-08-19] MEDS: cefTRIAXone 1,000 MG in SODIUM CHLORIDE 0.9% 100 ML 200 MG IV (09:37)
[2022-08-19] MEDS: CYANOCOBALAMIN (VITAMIN B-12) 500 MCG TABLET 1000 MCG PO (09:38)
[2022-08-19] MEDS: allopurinoL 300 MG TABLET PO (09:38)
[2022-08-19] MEDS: predniSONE 20 MG TABLET 40 MG PO (09:38)
[2022-08-19 09:39] VITALS: BP 108/57
[2022-08-19] MEDS: SPIRONOLACTONE 25 MG TABLET PO (09:40)
[2022-08-19] MEDS: APIXABAN 5 MG TABLET 2.5 MG PO (09:40)
[2022-08-19] MEDS: METOPROLOL IR 25 MG TABLET 12.5 MG PO (09:40)
[2022-08-19] MEDS: CALCIUM CARBONATE 600 MG TABLET PO (09:41)
[2022-08-19] MEDS: CHOLECALCIFEROL (VITAMIN D3) 1,000 UNIT TABLET 1000 UNIT PO (09:41)
--- NOTE | 2022-08-19 11:15 | P.DS_ITS ---
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 treated with radiation) who presented to the emergency room with weakness and subjective fever for the past 2 days. Patient states that for the past 2 days he has felt more weak with generalized malaise and subjective fever. His highest measured temperature at home was 99.5, and he does endorse mildly worsened shortness of breath. He does report a slight increase in his cough over the past couple of days, but no increase in sputum production. He states that he is the same weight that he typically is within a couple of lb, as he does measure himself every day. He denies any lower extremity edema, headaches, vision changes, recent sick contacts, rhinorrhea, sore throat, ear pain, rash, abdominal pain, diarrhea, dysuria, or urinary frequency. He reports previous COVID and flu infection, with COVID infection being in March of 2022, followed by a flu infection where he subsequently developed a pneumonia and was admitted to [facility] in [place] for 4 days and discharged on July 06, 2022. In the emergency room, T-max was 100.3? F, the remainder of his vital signs were unremarkable except for a mild tachypnea. He was greater than 96% on room air. Chest x-ray was performed which showed some scarring in his lung bases, CT with contrast showed no acute findings. Laboratory evaluation revealed a mild leukocytosis with WBC 13.1, mild thrombocytopenia with platelets of 107. Chemistry panel was unremarkable. Troponin was negative. ProBNP was 2740. COVID-19, flu, and RSV were negative by PCR. Discharge Providers Provider Date of admission: 08/18/22 19:39 Discharge Date: 08/19/22 Primary care physician: Clinton Grimm MD Discharge provider: Trace Araiza DO Summary Hospital Course Discharge Diagnosis: 1. Community acquired pneumonia ?- continue ceftriaxone and azithromycin. Despite initial imaging without focal infiltrates given reported fever, shortness of breath, and fatigue clinically most likely etiology for his symptoms remain pneumonia at this time. ?- blood cultures obtained in the ER, results still pending ?- COVID, flu, RSV, negative by PCR. - discharged on 4 more days of po levaquin 2. COPD with exacerbation ?- continue prednisone x5 days. Albuterol nebs prn 3. Possible acute on chronic heart failure ?- possible heart failure with recent dyspnea and elevated pro-BNP. However he is at his reported baseline weight and CXR is clear despite rales on exam. ?- consider low dose furosemide depending on patient's ongoing symptoms ?- no indication for TTE at this time, would not change current management. But should symptoms persist or worsen would check echo. ?- try to obtain records from [facility] regarding previous heart failure. ?- continue home spironolactone. 4. HTN ?- continue home medications 5. HLD ?- continue statin 6. BPH ?- continue home tamsulosin 7. History of lung cancer 8. Chronic atrial fibrillation ?- continue home apixaban, EKG shows paced rhythm. 9. Thrombocytopenia, acute ?- Plt of 107, presume in setting of acute infection, continue to monitor. Hospital Course: Admitted for dyspnea and fever. Found to have infiltrate on CXR suspicious for pneumonia and given CAP IV abx. Also quite wheezy so started on po prednisone and nebs. He improved significantly by the next day and was not on oxygen so discharged home on 4 more day so po prednisone and po levaquin. Time Spent with Patient Time spent: Greater than 30 minutes Exam Vital Signs (past 8 hours): - 08/19/22 04:26 08/19/22 08:00 08/19/22 09:07 Temperature 96.3 F L 97.4 F L Pulse Rate 60 60 60 Respiratory Rate 17 18 16 Blood Pressure 111/55 L 108/57 L Pulse Oximetry 98 96 96 Oxygen Delivery Method Room Air Oxygen Flow Rate 0 0 0 Fraction of Inspired Oxygen 21 08/19/22 09:39 Temperature Pulse Rate Respiratory Rate Blood Pressure 108/57 L Pulse Oximetry Oxygen Delivery Method Oxygen Flow Rate Fraction of Inspired Oxygen Fraction of Inspired Oxygen 21 SaO2/FiO2 Ratio 457 Oxygen Delivery Method Room Air Oxygen Flow Rate 0 Narrative Exam Narrative: General:? Patient is well developed and well nourished, in no distress at this time. HEENT:? Normocephalic, atraumatic, extraocular muscles intact, oral pharynx is clear and mucous membranes are moist. Neck: supple and symmetric, trachea is midline, no cervical adenopathy. Negative for JVD Chest:? Normal AP diameter and contour without kyphoscoliosis, no tachypnea, equal chest rise bilaterally. Lungs:? mild wheezes, Decreased air movement. Cardio:?RRR no m/r/g. Abdomen: S NT ND. No CVA tenderness. Musculoskeletal:? Muscle strength and tone are equal within normal limits, no deformity. Extremities: No edema or joint effusions. No cyanosis or clubbing. Skin:? Pale,? Warm to touch,dry and intact without rashes, ulcerations or petechiae.? Neuro:? Alert and orientated x3,? sensation to touch intact in all extremities, no gross deficits noted of cranial nerves. Psych:? Patient has a well-kept appearance, appropriate affect, mental status attitude thought context and judgment are appropriate for age. Objective Labs 08/19/22 05:56 08/19/22 05:56 Labs: Laboratory Results - last 24 hr 08/18/22 08/18/22 08/18/22 15:25 15:33 15:33 WBC 13.1 H RBC 3.90 L Hgb 12.2 L Hct 37.0 L MCV 94.8 MCH 31.3 MCHC 33.0 RDW 15.4 H Plt Count 107 L Neut % (Auto) Not Reportable Lymph % (Auto) Not Reportable [place] % (Auto) Not Reportable Eos % (Auto) Not Reportable Baso % (Auto) Not Reportable Neut # (Auto) Lymph # (Auto) Not Reportable [place] # (Auto) Not Reportable Eos # (Auto) Baso # (Auto) Not Reportable Total Counted 100 Seg Neutrophils % 72.0 H Lymphocytes % (Manual) 4.0 L Atypical Lymphs % 3.0 H Monocytes % (Manual) 21.0 H Neutrophils # (Manual) 9432 H RBC Morphology See below Anisocytosis 1+ H PT 21.9 H INR 1.9 H Sodium Potassium Chloride Carbon Dioxide BUN Creatinine Estimated GFR BUN/Creatinine Ratio Glucose Lactate Calcium Magnesium Total Bilirubin AST ALT Alkaline Phosphatase Troponin I NT-Pro-B Natriuret Pep Total Protein Albumin Globulin Albumin/Globulin Ratio Urine Color Urine Appearance Urine pH Ur Specific [place] Urine Protein Urine Glucose (UA) Urine Ketones Urine Occult Blood Urine Nitrate Urine Bilirubin Urine Urobilinogen Ur Leukocyte Esterase Urine RBC Urine WBC Urine Bacteria Ur Culture Indicated? Nasal Screen MRSA (PCR) SARS-CoV-2 (PCR) Negative Influenza A (RT-PCR) Influenza B (RT-PCR) RSV (PCR) 08/18/22 08/18/22 08/18/22 15:33 15:33 17:30 WBC RBC Hgb Hct MCV MCH MCHC RDW Plt Count Neut % (Auto) Lymph % (Auto) [place] % (Auto) Eos % (Auto) Baso % (Auto) Neut # (Auto) Lymph # (Auto) [place] # (Auto) Eos # (Auto) Baso # (Auto) Total Counted Seg Neutrophils % Lymphocytes % (Manual) Atypical Lymphs % Monocytes % (Manual) Neutrophils # (Manual) RBC Morphology Anisocytosis PT INR Sodium 139 Potassium 3.6 Chloride 102 Carbon Dioxide 23 BUN 23 H Creatinine 1.10 Estimated GFR > 60 BUN/Creatinine Ratio 20.9 Glucose 129 H Lactate 1.9 Calcium 9.4 Magnesium Total Bilirubin 0.9 AST 25 ALT 19 Alkaline Phosphatase 60 Troponin I < 0.012 NT-Pro-B Natriuret Pep 2740 H Total Protein 7.5 Albumin 4.4 Globulin 3.1 Albumin/Globulin Ratio 1.4 Urine Color Urine Appearance Urine pH Ur Specific [place] Urine Protein Urine Glucose (UA) Urine Ketones Urine Occult Blood Urine Nitrate Urine Bilirubin Urine Urobilinogen Ur Leukocyte Esterase Urine RBC Urine WBC Urine Bacteria Ur Culture Indicated? Nasal Screen MRSA (PCR) SARS-CoV-2 (PCR) Negative Influenza A (RT-PCR) Flu a negative Influenza B (RT-PCR) Flu b negative RSV (PCR) Negative 08/18/22 08/19/22 08/19/22 23:33 00:40 05:56 WBC 10.0 RBC 3.30 L Hgb 10.4 L Hct 31.7 L MCV 95.9 MCH 31.6 MCHC 32.9 RDW 15.0 H Plt Count 89 L Neut % (Auto) 86.8 H Lymph % (Auto) 3.0 L [place] % (Auto) 10.1 Eos % (Auto) 0.0 L Baso % (Auto) 0.1 Neut # (Auto) 8700 H Lymph # (Auto) 300 L [place] # (Auto) 1000 H Eos # (Auto) 0 Baso # (Auto) 0 Total Counted Seg Neutrophils % Lymphocytes % (Manual) Atypical Lymphs % Monocytes % (Manual) Neutrophils # (Manual) RBC Morphology Anisocytosis PT INR Sodium Potassium Chloride Carbon Dioxide BUN Creatinine Estimated GFR BUN/Creatinine Ratio Glucose Lactate Calcium Magnesium Total Bilirubin AST ALT Alkaline Phosphatase Troponin I NT-Pro-B Natriuret Pep Total Protein Albumin Globulin Albumin/Globulin Ratio Urine Color Yellow Urine Appearance Clear Urine pH 5.5 Ur Specific [place] 1.015 Urine Protein Negative Urine Glucose (UA) Trace H Urine Ketones Trace H Urine Occult Blood Trace-intact Urine Nitrate Negative Urine Bilirubin Negative Urine Urobilinogen 0.2 Ur Leukocyte Esterase Negative Urine RBC 0-1/hpf Urine WBC None seen Urine Bacteria None seen Ur Culture Indicated? Cult not indicated Nasal Screen MRSA (PCR) Negative for mrsa SARS-CoV-2 (PCR) Influenza A (RT-PCR) Influenza B (RT-PCR) RSV (PCR) 08/19/22 05:56 WBC RBC Hgb Hct MCV MCH MCHC RDW Plt Count Neut % (Auto) Lymph % (Auto) [place] % (Auto) Eos % (Auto) Baso % (Auto) Neut # (Auto) Lymph # (Auto) [place] # (Auto) Eos # (Auto) Baso # (Auto) Total Counted Seg Neutrophils % Lymphocytes % (Manual) Atypical Lymphs % Monocytes % (Manual) Neutrophils # (Manual) RBC Morphology Anisocytosis PT INR Sodium 138 Potassium 3.6 Chloride 106 Carbon Dioxide 21 L BUN 23 H Creatinine 1.24 Estimated GFR 57 L BUN/Creatinine Ratio 18.5 Glucose 224 H Lactate Calcium 8.4 Magnesium 1.6 Total Bilirubin AST ALT Alkaline Phosphatase Troponin I NT-Pro-B Natriuret Pep Total Protein Albumin Globulin Albumin/Globulin Ratio Urine Color Urine Appearance Urine pH Ur Specific [place] Urine Protein Urine Glucose (UA) Urine Ketones Urine Occult Blood Urine Nitrate Urine Bilirubin Urine Urobilinogen Ur Leukocyte Esterase Urine RBC Urine WBC Urine Bacteria Ur Culture Indicated? Nasal Screen MRSA (PCR) SARS-CoV-2 (PCR) Influenza A (RT-PCR) Influenza B (RT-PCR) RSV (PCR) [facility] Medical History Atrial fibrillation Bradycardia COPD (chronic obstructive pulmonary disease) Gout History of colon polyps History of GI bleed HTN (hypertension) Hyperlipidemia Pacemaker Pollen allergies Surgical History History of cataract removal with insertion of prosthetic lens Status post hernia repair Family History Brother Age: 88 Prostate cancer Mother No pertinent past medical history Social History household members: spouse Smoking Status: Former smoker alcohol intake: current Discharge Plan Discharge Plan Patient Disposition: Home Provider Discharge Comment: You were admitted for pneumonia and COPD exacerbation. You improved quite quickly with nebulizers, steroids and antibiotics. I am discharging you on 4 more days of steroids and antibiotics to finish at home. Discharge orders & Medications Prescriptions: New prednisone 20 mg Tablet 40 mg PO DAILY 4 Days Qty: 8 0RF Rx Instructions: start on 08/20 levofloxacin 750 mg tablet 750 mg PO DAILY 4 Days Qty: 4 0RF Rx Instructions: start on /3 Continued omega [id number] oil [Fish Oil] 1,000 MG capsule 3,000 mg PO QPM Qty: 0 calcium carbonate 600 MG tablet 1 tab PO BID Qty: 0 multivitamin [Multiple Vitamins] 1 EACH tablet 1 tab PO DAILY Qty: 0 ascorbic acid (vitamin C) 500 MG tablet 500 mg PO DAILY Qty: 0 acetaminophen 500 mg Tablet 500 - 1,000 mg PO PRN PRN (Reason: pain) spironolactone 25 mg Tablet 25 mg PO QAM tamsulosin 0.4 mg Capsule 0.8 mg PO QPM lisinopril 5 mg Tablet 5 mg PO QAM rosuvastatin 10 mg Tablet 10 mg PO QPM metoprolol tartrate 25 mg Tablet 12.5 mg PO BID magnesium oxide 400 mg magnesium Tablet 400 mg PO QAM albuterol sulfate 2.5 MG/3 ML solution for nebulization 3 ml INH BID PRN (Reason: Shortness Of Breath) allopurinol 300 MG tablet 300 mg PO QAM colchicine 0.6 MG capsule 0.6 mg PO BIDP PRN (Reason: Gout) Label Comments: home med list states 2 tabs am and 1 tab pm prn albuterol sulfate [Proventil HFA] 90 MCG/PUFF HFA aerosol inhaler 1 - 2 puff INH Q4HP PRN (Reason: Shortness Of Breath) cyanocobalamin (vitamin B-12) [Vitamin B-12] 1,000 mcg Tablet 1,000 mcg PO DAILY cholecalciferol (vitamin D3) [Vitamin D3] 1,000 unit Tablet 1,000 unit PO BID loratadine 10 mg Capsule 10 mg PO DAILY PRN (Reason: Allergic Symptoms) Glucosamine Chondroitin 1 cap PO DAILY Eliquis 5 mg tablet 2.5 mg PO BID melatonin 5 mg Tablet 5 mg PO BEDTIME Follow up/Referrals: Clinton Grimm MD [Primary Care Provider] - 2 Weeks Visit Report/Discharge Packet Stand Alone Forms: Patient Portal/API, Stroke Signs & Symptoms Discharge Data Primary Care Provider: Clinton Grimm Quality VTE Deep Vein Thrombosis/Pulmonary Embolism Present on Admission: No
--- NOTE | 2022-08-19 12:33 | CM.DANOTE ---
Initial DCP Assessment Note Pt is an 86 yo male, resident of [place], presents w/fever, SOB, possible pneumonia. Patient was recently discharged (June) from [facility] after being dx w/ COVID and Flu PCP: Clinton Grimm Payer: Radha CASTRO Reviewed chart, pt discussed in multidisciplinary rounds this morning. Pt eager to return home w/family, denies needs from CM team No barriers identified at this time to patient's safe discharge home w/family to assist; close outpatient f/u recommended. CM team following closely for continued assessment of DC needs and coordination of plan JAYDE Tomas Discharge Planning/Care Management CM Discharge Assessment Start: 08/19/22 12:15 Freq: Status: Active Protocol: Document 08/19/22 12:15 TAYA (Rec: 08/19/22 12:33 TAYA [id number]) Discharge Planning Assessment Assigned Brick Handler JAYDE Alejandre DPOA/Assigned Designee Name Yodit Monte, spouse Contact Information [phone] Advance Directives? Yes Advance Directives on File Yes History Provided By Patient,Family Member,Medical Record Has Patient been admitted in last 30 No days? Comment ER Visit May 2022 Prior Living Arrangements House Household Members spouse Type of transporation used prior to Drives own vehicle admit Independent with ADL's Yes: Poor activity tolerance r /t recent infection Is patient alert and oriented? Yes Barriers to Discharge No Comment DC home to the care of spouse today, close outpatient f/u recommended Discharge Plan Home Transportation Arrangement Family Referrals Initiated None needed
== END 2022-08-19 13:20 | disposition home or self-care (01) | DRG 194 ==
LOC: ED 19:22 → AC 20:42
PROVIDERS: Emergency Medicine; Internal Medicine; Admitting Provider Student in an Organized Health Care Education/Training Program; Emergency Provider Emergency Medicine; Family Provider Internal Medicine; PCP Family Medicine; Referring Provider Emergency Medicine; Visit Provider Student in an Organized Health Care Education/Training Program
DX: J44.1 Chronic obstructive pulmonary disease with (acute) exacerbation (principal); I48.20 Chronic atrial fibrillation, unspecified; E78.5 Hyperlipidemia, unspecified; N40.0 Benign prostatic hyperplasia without lower urinary tract symptoms; D69.6 Thrombocytopenia, unspecified; I11.0 Hypertensive heart disease with heart failure; I50.9 Heart failure, unspecified; M10.9 Gout, unspecified; Z20.822 Contact with and (suspected) exposure to COVID-19; Z79.01 Long term (current) use of anticoagulants; Z87.891 Personal history of nicotine dependence
CPT/HCPCS: 0241U; 36415; 71045; 71260; 80048; 80053; 81001; 83605; 83735; 83880; 84484; 85007; 85025; 85610; 87040; 87635; 87797; 93005; 94640; 96365; 96368; 96375; 99284; C9803; G0378; J0696; J2543; J2930; J7613

== ENCOUNTER → 2024-05-28 11:41 | Outpatient (CLI) | payer MEDICARE, SELFPAY ==
[2022-08-18 20:59] VITALS: BMI 25.0
== END ==
LOC: RESP 11:42
PROVIDERS: Family Provider Internal Medicine; PCP Family Medicine; Referring Provider Nurse Practitioner Gerontology; Visit Provider Nurse Practitioner Gerontology
DX: R06.09 Other forms of dyspnea (principal); I35.0 Nonrheumatic aortic (valve) stenosis; J43.2 Centrilobular emphysema; Z87.891 Personal history of nicotine dependence; R94.2 Abnormal results of pulmonary function studies
CPT/HCPCS: 94060; 94726; 94729

== ENCOUNTER → 2024-09-13 12:58 | Outpatient (CLI) | payer MEDICARE, SELFPAY ==
[2022-08-18 20:59] VITALS: BMI 25.0
--- NOTE | 2024-09-13 13:08 | DI.RAD.S_ITS ---
PROCEDURE: XR CHEST 2V INDICATIONS: CHECK LUNGS TECHNIQUE: 2 views of the chest were acquired. COMPARISON: [facility], CR, XR CHEST 1V, 08/18/2022, 15:06. FINDINGS: Surgical changes and devices: Right anterior chest wall single lead cardiac pacing device stable in appearance. Lungs and pleura: A new rounded retrocardiac density is noted in the posterior left lung base. The remaining lung zones are clear. No pleural effusions or pneumothorax. Mediastinum: Mediastinal contours are normal. Heart size is normal. Atherosclerotic vascular calcifications redemonstrated. Bones and chest wall: No suspicious bony abnormalities. Soft tissues appear unremarkable. IMPRESSION: Posterior left lung base retrocardiac density concerning for focal pulmonary nodule versus dense consolidation. Cross-sectional imaging is recommended for further evaluation. Dictated by: Gregorio Lawrence M.D. on 09/13/2024 at 16:44 Approved by: Gregorio Lawrence M.D. on 09/13/2024 at 16:46
== END ==
PROVIDERS: Family Provider Internal Medicine; PCP Family Medicine; Referring Provider Internal Medicine Cardiovascular Disease; Visit Provider Internal Medicine Cardiovascular Disease
DX: I50.22 Chronic systolic (congestive) heart failure (principal); I48.21 Permanent atrial fibrillation; Z95.3 Presence of xenogenic heart valve; I35.0 Nonrheumatic aortic (valve) stenosis
CPT/HCPCS: 71046

== ENCOUNTER → 2024-10-18 14:50 | Outpatient (CLI) | payer MEDICARE, SELFPAY ==
[2022-08-18 20:59] VITALS: BMI 25.0
--- NOTE | 2024-10-18 14:52 | DI.ECHO.S_ITS ---
[facility] : : [id number] : [place] : : [id number] : : Phone: [phone] Echocardiogram Report + + :Name: CHELLE MARADIAGA Study Date: 10/18/2024 Height: 66 in : :Hospital ReadingLocation: Weight: 152 lb : : Gender: Male BSA: 1.8 m2 : :: 1935 Age: 89 yrs BP: 132/79 mmHg: :Reason For Study: POST TAVR : :Ordering Physician: TONIO, : :JOLE Performed By: Kristian Beckham : :Referring: UNSPECIFIED : + + Interpretation Summary Afib with controlled rate; suspect RV pacing. Normal LV size and mild concentric LVH; mildly reduced LV systolic function estimated at 45-50%. Moderate LA enlargement and severe RA enlargement. S/p TAVR; prosthesis is functioning normally. Estimated PA systolic pressure is 38 mm Hg assuming RA pressure of 3 mm Hg. Procedure: A two-dimensional transthoracic echocardiogram with color flow and Doppler was performed. The study quality was technically good. The patient had an echocardiogram, but there is no comparison study available. The patient has a paced rhythm. Left Ventricle: The left ventricle is normal in size. Left ventricular wall thickness is mildly increased. There is no ventricular septal defect visualized. The ejection fraction is estimated to be 45-50%. Right Ventricle: The right ventricle is mildly dilated. There is a pacemaker lead in the right ventricle. Atria: The left atrium is moderately dilated. The right atrium is severely dilated. There is a catheter/pacemaker lead seen in the right atrium. Mitral Valve: There is mild mitral annular calcification. The mitral valve leaflets appear mildly thickened, but open well. There is mild mitral regurgitation. Aortic Valve: TAVR (26 mm S3 08/08/24). The peak aortic velocity is 2.15 m/sec. The aortic valve mean gradient is 9.7 mmHg. No aortic regurgitation is present. Tricuspid Valve: The tricuspid valve is not well visualized. There is mild tricuspid regurgitation. The right ventricular systolic pressure is estimated to be at least 38 mmHg based on an estimated right atrial pressure of 3 mm Hg. Pulmonic Valve: The pulmonic valve is not well seen, but is grossly normal. There is trace pulmonic regurgitation. Great Vessels: The aortic root is normal size. The ascending aorta could not be visualized. The pulmonary artery is normal size. The IVC is of normal diameter and collapses greater than 50% with a sniff. This suggests a low right atrial pressure of 3 mm Hg. Pericardium/ Pleura There is no pericardial effusion. There is no pleural effusion. MMode/2D Measurements & Calculations LVIDd: 4.1 cm LVOT diam: 1.9 cm LVIDs: 3.0 cm Ao root diam: 3.5 cm FS: 27.6 % EPSS: 0.71 cm IVSd: 1.1 cm LVPWd: 1.1 cm LV sher. diameter/BSA (cm/m^2): 2.3 LV sys. diameter/BSA (cm/m^2): 1.7 LA A2 area: 26.2 cm2 RA long axis: 6.3 cm LA A4 area: 23.6 cm2 RA area: 27.8 cm2 LA length (vol): 6.9 cm RA vol: 103.6 ml LA vol: 76.0 ml RA : 58.2 ml/m2 LA vol index: 42.7 ml/m2 IVC diam: 1.9 cm RVD1 (basal): 4.4 cm RVD2 (mid): 3.3 cm TAPSE: 1.8 cm Doppler Measurements & Calculations Ao V2 max: 214.9 cm/sec LVOT Max Ashish: 129.4 cm/sec Ao V2 mean: 147.5 cm/sec LV V1 max P.7 mmHg Ao max P.5 mmHg LV V1 VTI: 23.9 cm Ao mean P.7 mmHg CARLOS(I,D): 1.7 cm2 Ao V2 VTI: 39.3 cm CARLOS(V,D): 1.7 cm2 sev ratio: 0.61 CARLOS indexed to BSA (cm^2/m^2): 0.95 MV E max ashish: 95.9 cm/sec TR max ashish: 295.7 cm/sec MV A max ashish: 25.7 cm/sec TR max P.0 mmHg MV E/A: 3.7 PA V2 max: 77.9 cm/sec MV dec time: 0.24 sec PA V2 mean: 49.1 cm/sec PA mean P.2 mmHg PA pr(Accel): 49.9 mmHg SV(LVOT): 66.5 ml Electronically signed by: Jaja Cristobal M.D. on Reading Physician:10/19/2024 02:20 AM
== END ==
PROVIDERS: Family Provider Internal Medicine; PCP Family Medicine; Referring Provider Internal Medicine; Visit Provider Internal Medicine
DX: I08.1 Rheumatic disorders of both mitral and tricuspid valves (principal)
CPT/HCPCS: 93306